=== PATIENT | male | born 1940 | race Caucasian/White ===

== ENCOUNTER → 2023-10-02 13:21 | Outpatient (REF) | payer MEDICARE, BC, SELFPAY | LOC: RCS 13:21 | PROVIDERS: ATTENDING PHYSICIAN Internal Medicine Cardiovascular Disease; FAMILY PHYSICIAN Internal Medicine | DX: I35.0 Nonrheumatic aortic (valve) stenosis (principal) | CPT/HCPCS: 93306 ==

== ENCOUNTER 2024-03-09 17:33 | Outpatient (RCR) | payer MEDICARE, BC, SELFPAY | END 2024-03-09 23:59 | disposition home or self-care (01) | LOC: CRHB 17:33 | PROVIDERS: ATTENDING PHYSICIAN Internal Medicine Cardiovascular Disease | DX: Z95.4 Presence of other heart-valve replacement (principal) | CPT/HCPCS: G0422 ==

== ENCOUNTER 2024-03-18 18:46 | Outpatient (RCR) | payer MEDICARE, BC, SELFPAY | END 2024-03-18 23:59 | disposition home or self-care (01) | LOC: CRHB 18:46 | PROVIDERS: ATTENDING PHYSICIAN Internal Medicine Cardiovascular Disease | DX: I25.10 Atherosclerotic heart disease of native coronary artery without angina pectoris (principal); I48.0 Paroxysmal atrial fibrillation; Z95.4 Presence of other heart-valve replacement | CPT/HCPCS: G0422 ==

== ENCOUNTER 2024-05-10 07:34 | Outpatient (RCR) | payer MEDICARE, BC, SELFPAY | END 2024-05-10 23:59 | disposition home or self-care (01) | LOC: RST 07:34 | PROVIDERS: ATTENDING PHYSICIAN Internal Medicine; FAMILY PHYSICIAN Family Medicine | DX: C02.1 Malignant neoplasm of border of tongue (principal); R13.12 Dysphagia, oropharyngeal phase; R47.1 Dysarthria and anarthria | CPT/HCPCS: 92523; 92610 ==

== ENCOUNTER → 2024-05-13 14:08 | Outpatient (REF) | payer MEDICARE, BC, SELFPAY | LOC: RCS 14:08 | PROVIDERS: ATTENDING PHYSICIAN Internal Medicine Cardiovascular Disease | DX: I35.0 Nonrheumatic aortic (valve) stenosis (principal) | CPT/HCPCS: 93306 ==

== ENCOUNTER 2024-06-07 13:18 | Outpatient (RCR) | payer MEDICARE, BC, SELFPAY | END 2024-06-07 23:59 | disposition home or self-care (01) | LOC: RST 13:18 | PROVIDERS: ATTENDING PHYSICIAN Internal Medicine; FAMILY PHYSICIAN Family Medicine | DX: C02.1 Malignant neoplasm of border of tongue (principal); R13.12 Dysphagia, oropharyngeal phase; R47.1 Dysarthria and anarthria; R47.01 Aphasia | CPT/HCPCS: 92507; 92526 ==

== ENCOUNTER 2024-06-07 15:23 | Outpatient (RCR) | payer MEDICARE, BC, SELFPAY | END 2024-06-07 23:59 | disposition home or self-care (01) | LOC: CRHB 15:23 | PROVIDERS: ATTENDING PHYSICIAN Internal Medicine Cardiovascular Disease; FAMILY PHYSICIAN Internal Medicine | DX: I48.91 Unspecified atrial fibrillation (principal); Z95.4 Presence of other heart-valve replacement | CPT/HCPCS: G0422; G0423 ==

== ENCOUNTER 2024-06-21 14:39 | Outpatient (RCR) | payer MEDICARE, BC, SELFPAY | END 2024-06-21 23:59 | disposition home or self-care (01) | LOC: CRHB 14:39 | PROVIDERS: ATTENDING PHYSICIAN Internal Medicine Cardiovascular Disease; FAMILY PHYSICIAN Internal Medicine | DX: Z95.4 Presence of other heart-valve replacement (principal) | CPT/HCPCS: G0422 ==

== ENCOUNTER 2024-06-24 16:18 | Inpatient (IN) | payer MEDICARE, BC, SELFPAY ==
[2024-06-21] VITALS (7 sets, daily range): BP systolic 157–179; BP diastolic 66–102
--- NOTE | 2024-06-21 15:21 | ED.GENMED ---
History of Present Illness
General
Chief Complaint: Head Injury
Source: patient
Exam Limitations: none
Time Seen by Provider: 06/21/24 15:00
History of Present Illness
History of Present Illness:
84yoM with a history of atrial fibrillation on Eliquis, aortic stenosis s/p TAVR, hypertension, and polymyalgia rheumatica presenting with his for evaluation after a fall yesterday morning. Patient tried to sit down on a bench in his home
yesterday morning about 30 hours ago. He missed the bench and fell on his right side. He states he grazed the right temporal area. No LOC. Patient developed dependent ecchymosis to his R face since then as well as a R subconjunctival hemorrhage. He
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 Patient went to cardiac rehab this afternoon and was sent to the ED for a CT scan of his head. He states he has no headache currently and does not feel he needs to be here. He denies any
dizziness, vomiting, neck pain, back pain.
Past History
Past History
ED Past Medical History: Arrthythmia (Atrial fibrillation and SVT), Cancer (Prostate and tongue) and Other (Temporal arteritis, BPH, kidney stones, polymyositis rheumatica, aortic stenosis, pulmonary hypertension, gout, lumbar vertebral compression
fracture, factor V deficiency, osteoarthritis, gout, BPH, macrocytic anemia)
ED Past Surgical History: Orthopedic (Left knee replacement)
Social History
Tobacco: Former smoker
Alcohol: None
Drug: None
Personal:
Living: with family
Employment: Employed
Family History
Family History: Other (Noncontributory)
Phy Exam
General Physical Exam
General Presentation: well appearing and no apparent distress
General age: appears stated age
General Skin: warm and dry
General Habitus: normal
General Mental: alert
ENT Exam
ENT Exam: other (+Hematoma noted to R temporal area with ecchymosis extending on the R side of the face/periorbital region. No cervical spine tenderness with full ROM.)
Eye Exam
Eye Exam: PERRL, EOMI and other (R subconjuctival hemorrhage)
Pulmonary Exam
Pulmonary Exam: lungs clear, no respiratory distress, no rales and no rhonchi
Neurological Exam
Neurological Exam: alert
[place] Coma Scale
Eye Opening: Spontaneous
Verbal Response: Oriented
Motor Response: Obeys Commands
GCS Total Score: 15
Musculoskeletal Exam
Musculoskeletal Exam: other (Contusion noted to R shoulder with tenderness. ROM intact. )
Skin Exam
Skin Exam: warm/dry
Psychiatric Exam
Psychiatric Exam: normal mood/affect
Course
Orders/Labs/Results
Orders:
Orders
06/21/24 13:54
CT Head W/o Iv Contrast Urgent
Comment: pt is on bld thinner
Reason For Exam: slipped and hit face on bench yesterday
06/21/24 15:21
CT Facial Bones W/o Iv Contras Urgent
Comment:
Reason For Exam: R periorbital ecchymosis
CR Shoulder, Trauma - Right Urgent
Reason For Exam: injury
06/21/24 16:45
PTT Urgent
Prothrombin Time Urgent
06/21/24 16:46
Complete Blood Count/With Diff Urgent
Manual Differential Urgent
06/21/24 17:29
Basic Metabolic Panel Urgent
06/21/24 17:53
Admit/Transfer Patient As Directed
Co-Sign Provider:
Level of Care: Observation services
Assign to:: Telemetry
Physician / Group: cosme
Diagnosis: intraventricular hemorrhage
Reason for Telemetry: Arrhythmia
Date to Stop Telemetry: 06/24/24
Time to Stop Telemetry: 11:00
PRN Pain Medication Management As Directed
May give lesser potent ordered pain med per pt: Yes
preference::
Protocol:: Medication orders for pain may be administered in a
manner that supports deferring to patient preference
when the pt is:
- Requesting an ordered lesser potent pain medication.
Least to most potent pain medications are defined
as: acetaminophen < NSAID < tramadol < opioids
(morphine, oxycodone, hydromorphone).
- Requesting a lesser dose of the same medication IF
ORDERED.
- Requesting a less intrusive route of administration
if both routes are prescribed by the provider (PO <
IV).
06/21/24 17:54
Code Status As Directed
Resuscitation Status: Full Code
06/24/24 11:00
DC Protocol for Telemetry ONCE
Abnormal Lab Results
06/21/24 06/21/24 06/21/24
16:45 16:46 17:29
RBC 2.86 L 10^6/uL
(4.70-6.10)
Hgb 9.1 L g/dL
(13.0-18.0)
Hct 27.5 L %
(39.0-52.0)
MCV 96.2 H fL
(80.0-94.0)
MCH 31.8 H pg
(27.0-31.0)
RDW 14.9 H %
(11.5-14.5)
MPV 10.5 H fL
(7.4-10.4)
Segmented Neutrophils 85 H %
(42-75)
Lymphocytes (Manual) 10 L %
(20-51)
PT 15.3 H Sec
(11.4-14.6)
APTT 36.8 H Sec
(23.4-35.0)
Creatinine 0.6 L mg/dL
(0.7-1.3)
06/21/24 16:46
06/21/24 17:29
Vital Signs
Initial and Last Documented VS:
Initial Vital Signs
Temp Pulse Resp BP Pulse Ox
98.6 F 91 16 179/88 98
06/21/24 13:51 06/21/24 13:51 06/21/24 13:51 06/21/24 13:51 06/21/24 13:51
Last Documented Vital Signs
Temp Pulse Resp BP Pulse Ox
98.6 F 75 27 176/91 97
06/21/24 13:51 06/21/24 18:15 06/21/24 18:15 06/21/24 18:00 06/21/24 18:15
MDM/Problems Addressed
Differential Diagnosis Includes:
84yoM here after a mechanical fall yesterday. +Head strike on Eliquis. Denies complaints. Sent here by cardiac rehab for head CT. He is hypertensive with otherwise stable vitals. There is facial ecchymosis and a R subconjunctival hemorrhage noted.
Cervical spine cleared via NEXUS criteria. Differential diagnosis includes: Closed head injury, concussion, skull fracture, intracranial hemorrhage
Initial ED plan: Check CT head, CT cervical spine, and right shoulder x-rays.
*Critical Care Note
Total Time (30-74mins, 75-104mins- exclusive of procedures): Not Applicable
Update Note
Update Note:
Imaging shows a 5 mm focus along the dependent of the right lateral ventricle consistent with a small volume intraventricular hemorrhage. No other traumatic injuries noted. Case discussed with Dr. Gtz, stonecutter hand neurosurgeon, who recommends
admission at [facility] with plan for repeat head CT in the morning. Patient admitted for further management.
ED Attending Note
-
Portions of this chart may have been created with voice recognition software.� Occasional wrong word or��sound alike� substitutions may have occurred due to the inherent limitations of voice recognition software.
Discharge Plan
Departure
Patient Disposition: Admit
Date of Disposition: 06/21/24
Time of Disposition: 17:22
Presentation/result/management discussed w/ accepting MD/DO: Hospitalist
Discharge Problem:
Intracranial hemorrhage, Ground-level fall
Interventions
Interventions:
*Risk Screen - Suicide Last Done: 06/21/24 13:51
*General Assessment Last Done: 06/21/24 15:50
*Neglect/Abuse Screening Last Done: 06/21/24 13:51
*ED COVID-19 Vaccine History Last Done: 06/21/24 15:50
ED- Neurological Assessment Last Done: 06/21/24 15:57
ED-Skin Assessment Last Done: 06/21/24 15:57
[2024-06-21 17:14] LABS: Hematocrit 27.5 % (39.0-52.0); Hemoglobin 9.1 g/dL (13.0-18.0); Mean Corp Hgb Conc. 33.1 g/dL (33.0-37.0); Mean Corpuscular Hgb 31.8 pg (27.0-31.0); Mean Corpuscular Volume 96.2 fL (80.0-94.0); Mean Platelet Volume 10.5 fL (7.4-10.4); Platelet Count 164 10^3/uL (130-400); Red Blood Cell Count 2.86 10^6/uL (4.70-6.10); Red Cell Dist. Width 14.9 % (11.5-14.5); White Blood Cell Count 7.4 10^3/uL (4.8-10.8)
[2024-06-21 17:18] LABS: INR 1.18; PT 15.3 Sec (11.4-14.6)
[2024-06-21 17:19] LABS: APTT 36.8 Sec (23.4-35.0)
--- NOTE | 2024-06-21 17:56 | HPS.HSE ---
Family Physician
-
Family Physician: Himanshu Motta
Chief Complaint
-
fall
History of Present Illness
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
arteritis, prostate cancer status post radiation, squamous cell cancer of the tongue, macrocytic anemia, BPH, gout, factor V Leyden,, osteoarthritis, MRSA infection of left knee joint, MRSA bacteremia, lumbar vertebral compression fracture,
presenting after a fall yesterday morning. Patient tried to sit down to bed yesterday morning 30 hours ago. He missed the bench and fell onto his right side. He grazed the right temporal area. No loss of consciousness. Developed ecchymosis to
his right face as well as right subconjunctival hemorrhage. His vision is fine. He went to cardiac rehab this afternoon and was sent to the emergency room for CT scan of the head. He denies headache. Denies dizziness or vomiting or neck pain or
back pain.
He drinks a glass of wine every night. Denies smoking.
Medical History
Past Medical History
Past Medical History: Reports Other ( paroxysmal atrial fibrillation on Eliquis, SVT status post ablation, aortic stenosis status post TAVR, hypertension, pulmonary hypertension, polymyalgia rheumatica, giant arteritis, prostate cancer status post
radiation, squamous cell cancer of the tongue, macrocytic anemia, BPH, gout, factor V [place])
Past Surgical History: Reports Other ((Left knee replacement))
Social History
Tobacco: Non-smoker
Alcohol: None
Drug: None
Family History
Family History: Not pertinent
Allergies / Home Medications
Allergies reflects when Allergies were last updated in [employer].
Home Medications with original date entered in [employer]
Allergy/Medication List:
Allergies
Allergy/AdvReac Type Severity Reaction Status Date / Time
pollen extracts Allergy Nasal Verified 06/21/24 13:53
congestion;
hayfever
Home Medications
ascorbic acid (vitamin C) 500 mg tablet (Vitamin C) 500 mg PO DAILY Supplement 10/09/19
metoprolol succinate 25 mg tablet,extended release 24 hr 25 mg PO QPM Blood pressure 10/09/19
multivitamin 1 ea PO DAILY Supplement 10/09/19
fluticasone propionate 50 mcg/actuation nasal spray,suspension 1 spray intranasal DAILY PRN nasal congestion 12/11/19
Lupron: 1 dose INJ .[id number] Hormonal agent 09/05/21
calcium 315 mg (as citrate)-vitamin D3 6.25 mcg (250 unit) tablet 1 ea PO DAILY Supplement 09/05/21
oxycodone 5 mg tablet 5 mg PO Q6HPRN PRN moderate-severe pain #30 tabs 09/07/21
pantoprazole 40 mg tablet,delayed release 40 mg PO HS #15 tabs 09/07/21
tamsulosin 0.4 mg capsule 0.4 mg PO HS Urinary issue 09/07/21
Krill Oil 1 tab PO DAILY ##0 10/01/21
docusate sodium 100 mg capsule 100 mg PO BID #30 caps 10/01/21
glucosamine sulfate dipotassium Cl 500 mg-chondroitin 400 mg capsule (Glucosamine Sulfate 2 KCL-Chondroitin) 1 cap PO DAILY ##0 10/01/21
losartan 50 mg tablet 50 mg PO HS ##0 10/01/21
magnesium hydroxide 400 mg/5 mL oral suspension 30 ml PO HSPRN PRN constipation ##7 10/01/21
prednisone 2.5 mg tablet 2.5 mg PO DAILY ##0 10/01/21
sennosides 8.6 mg capsule (senna) 17.2 mg (2 x 8.6 mg) PO BID #30 caps 10/01/21
acetaminophen 325 mg tablet 650 mg PO Q4HPRN PRN mild pain 10/12/21
allopurinol 300 mg tablet 300 mg PO DAILY Gout 10/12/21
tizanidine 2 mg tablet 2 mg PO HSPRN PRN muscle pain/sleep 10/12/21
apixaban 2.5 mg tablet (Eliquis) 2.5 mg PO BID 10/14/21
Review of Systems
-
History Source: Patient
A 12 point ROS was completed and negative except as noted: Yes
Constitutional: Reports No Symptoms
EENT: Reports No Symptoms
Respiratory: Reports No Symptoms
Cardiac: Reports No Symptoms
Abdomen/GI: Reports No Symptoms
: Reports No Symptoms
Musculoskeletal: Reports No Symptoms
Skin: Reports No Symptoms
Neurological: Reports No Symptoms
Endocrine: Reports No Symptoms
Hematologic/Lymphatic: Reports No Symptoms
Psych: Reports No Symptoms
Physical Exam
Vital Signs
Vital Signs
Temp Pulse Resp BP Pulse Ox
98.6 F 91 16 179/88 98
06/21/24 13:51 06/21/24 13:51 06/21/24 13:51 06/21/24 13:51 06/21/24 13:51
Physical Exam
General: Well Developed, Well Nourished and No Apparent Distress
HEENT: NormoCephalic, Moist mucous membranes, Atraumatic and Other (erythema right eye, periorbital echymosis )
Respiratory: Clear
Cardiac: S1/S2 and Regular Rhythm; No Murmur or Rub
GI: Soft, Non Tender, Non Distended and Normal Bowel Sounds; No Organomegaly
Rectal: Deferred by Provider
Musculoskeletal: No Clubbing, No Cyanosis and No Edema
Skin: No Rash
Neuro: Nonfocal/grossly intact
Laboratory Results
-
06/21/24 16:46
Laboratory Results
PT 15.3 Sec (11.4-14.6) H 06/21/24 16:45
INR 1.18 06/21/24 16:45
APTT 36.8 Sec (23.4-35.0) H 06/21/24 16:45
Total Bilirubin Cancelled 06/21/24 16:45
AST Cancelled 06/21/24 16:45
ALT Cancelled 06/21/24 16:45
Alkaline Phosphatase Cancelled 06/21/24 16:45
Data Reviewed
-
Lab Data: Labs Reviewed by me
Old Records: Reviewed
Impression/Plan
-
IMPRESSION:
PLAN:
# Small intraventricular hemorrhage along the right lateral ventricle
-As per CT head
-Hold Eliquis
-Maintain systolic blood pressure under 140 systolic
-Neurosurgery consulted and recommended stay for overnight observation and repeat CT head in the morning and discharge and resume Eliquis if stable tomorrow
# Ecchymosis of right face/periorbital with conjunctival hemorrhage from fall
-No symptoms
# Right shoulder ecchymosis from fall
-Shoulder x-ray negative
Paroxysmal atrial fibrillation
-Continue metoprolol
Aortic stenosis status post TAVR in January
-Attending cardiac rehab
History of SVT status post ablation
Essential hypertension
-Continue losartan
Pulmonary hypertension
Polymyalgia rheumatica
Macrocytic anemia
Giant arteritis
BPH
-Continue tamsulosin
Gout
-Continue allopurinol
Factor V Leyden mutation
Prostate cancer status post radiation
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
History of MRSA infection of left knee joint/bacteremia
Full code
DVT prophylaxis SCDs
Regular diet
[2024-06-21 18:00] LABS: Blood Urea Nitrogen 18 mg/dl (9-20); Calcium 9.5 mg/dl (8.4-10.2); Carbon Dioxide 22 mmol/L (22-30); Chloride 104 mmol/L (98-107); Glucose 88 mg/dl (70-99); Sodium 138 mmol/L (135-145); eGFR > 60.00
[2024-06-21 18:31] LABS: Absolute Neutrophils -Man Diff 6.4 10^3/uL (1.4-6.5); Band Neutrophils 2 % (0-3); Lymphocytes 10 % (20-51); Monocytes 3 % (2-9); Segmented Neutrophils 85 % (42-75)
[2024-06-21 18:33] LABS: Anisocytosis 1+; Hypochromasia 1+; Normal RBC Morphology No; Platelets Checked Yes
[2024-06-21 18:34] LABS: Total Cells Counted 100
[2024-06-21] MEDS: TOPROL XL 12.5 MG PO (21:22)
[2024-06-21] MEDS: FLOMAX 0.4 MG PO (21:22)
[2024-06-21] MEDS: COLACE 100 MG PO (21:22)
[2024-06-22] VITALS (21 sets, daily range): BP systolic 128–181; BP diastolic 55–81; PULSE 77–86; BMI 22.3
[2024-06-22 06:02] LABS: % Basophils 0.8 % (0-2); % Eosinophils 4.4 % (0-6); % Immature Granulocytes 0.2 % (0-0.5); % Lymphocytes 17.7 % (20.5-51.1); % Monocytes 13.6 % (1.7-9.3); % Neutrophils 63.3 % (42.2-75.2); Absolute Basophils 0.1 10^3/uL (0-0.2); Absolute Eosinophils 0.3 10^3/uL (0-0.7); Absolute Lymphocytes 1.1 10^3/uL (1.2-3.4); Absolute Monocytes 0.9 10^3/uL (0.1-0.6); Absolute Neutrophils 4.1 10^3/uL (1.4-6.5); Hematocrit 25.2 % (39.0-52.0); Hemoglobin 8.4 g/dL (13.0-18.0); Mean Corp Hgb Conc. 33.3 g/dL (33.0-37.0); Mean Corpuscular Hgb 31.9 pg (27.0-31.0); Mean Corpuscular Volume 95.8 fL (80.0-94.0); Mean Platelet Volume 10.4 fL (7.4-10.4); Nucleated Red Blood Cells % 0 % (-); Platelet Count 142 10^3/uL (130-400); Red Blood Cell Count 2.63 10^6/uL (4.70-6.10); Red Cell Dist. Width 14.8 % (11.5-14.5); White Blood Cell Count 6.4 10^3/uL (4.8-10.8)
[2024-06-22 06:27] LABS: ALT (SGPT) 121 U/L (0-50); AST (SGOT) 91 U/L (17-59); Albumin 3.9 g/dl (3.5-5.0); Alkaline Phosphatase 259 U/L (38-126); Blood Urea Nitrogen 15 mg/dl (9-20); Calcium 9.1 mg/dl (8.4-10.2); Carbon Dioxide 24 mmol/L (22-30); Chloride 102 mmol/L (98-107); Estimated Creatinine Clearance 87 ml/min; Glucose 89 mg/dl (70-99); Potassium 4.3 mmol/L (3.5-5.1); Sodium 136 mmol/L (135-145); Total Bilirubin 0.7 mg/dl (0.2-1.3); Total Protein 6.4 g/dl (6.3-8.2); eGFR > 60.00
[2024-06-22] MEDS: THERAGRAN 1 TABLET PO (11:04)
--- NOTE | 2024-06-22 12:15 | W.PN.HOSP.TC ---
Addendum entered and electronically signed by Tyrese Hdz MD 06/22/24 15:25:
US : Cholelithiasis with thickening of the gallbladder wall 5 mm suggesting cholecystitis and dilatation of the common duct to 10 mm suggesting possible choledocholithiasis
consulting Gen Surg and GI;
hold dc
Original Note:
Today's Communication/Plan
-
orthostatics prior to dc
holter monitor outpt
neurosurg eval, can restart eliquis
ruq sono, should not preclude dc - can otherwise f/u outpt with [facility]
Assessment / Plan
Assessment / Plan
Physical Exam
General: Well Developed, Well Nourished and No Apparent Distress
HEENT: NormoCephalic, Moist mucous membranes, Atraumatic and Other (erythema right eye, periorbital echymosis )
Respiratory: Clear
Cardiac: S1/S2 and Regular Rhythm; No Murmur or Rub
GI: Soft, Non Tender, Non Distended and Normal Bowel Sounds; No Organomegaly
Rectal: Deferred by Provider
Musculoskeletal: No Clubbing, No Cyanosis and No Edema
Skin: No Rash
Neuro: Nonfocal/grossly intact
# Small intraventricular hemorrhage along the right lateral ventricle
-repeat ct head stable
-await nsg recs, no acute interventions
-can resume Eliquis today as ct stable
# Ecchymosis of right face/periorbital with conjunctival hemorrhage from fall
-No symptoms
-pt/ot
-holter outpt
#Transaminitis
-no abd pain tenderness
-f/u complete us - can be done outpt if not done inpt
# Right shoulder ecchymosis from fall
-Shoulder x-ray negative
Paroxysmal atrial fibrillation
-Continue metoprolol
Aortic stenosis status post TAVR in January
-Attending cardiac rehab
-f/u cards outpt
History of SVT status post ablation
-f/u cards for possible holter
Essential hypertension
-Continue losartan
Pulmonary hypertension
Polymyalgia rheumatica
Macrocytic anemia
Giant arteritis
BPH
-Continue tamsulosin
Gout
-Continue allopurinol
Factor V Leyden mutation
Prostate cancer status post radiation
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
History of MRSA infection of left knee joint/bacteremia
Full code
DVT prophylaxis SCDs
Regular diet
More than 30 minutes spent in discharge including
Final examination of the patient
Summarizing hospital stay
Instructions for continuing care to all relevant caregivers
Preparation of discharge records, prescriptions, and referral forms
Total time spent (37 in minutes):
Anticipated Discharge: Today
Subjective/Interval History
-
Date of Service: June 22, 2024
No acute events
Objective Data
-
Labs:
Laboratory Results
06/22/24
05:54
WBC 6.4
Hgb 8.4 L
Hct 25.2 L
Plt Count 142
Sodium 136
Potassium 4.3
Chloride 102
Carbon Dioxide 24
BUN 15
Creatinine 0.6 L
Glucose 89
Calcium 9.1
Total Bilirubin 0.7
AST 91 H
ALT 121 H
Alkaline Phosphatase 259 H
Vital Signs:
Vital Signs
Temp Pulse Resp BP Pulse Ox
98.6 F 69 20 170/68 98
06/21/24 13:51 06/22/24 06:00 06/22/24 06:00 06/22/24 05:45 06/22/24 06:00
Review of Systems
-
History Source: Patient
All other systems: Not reviewed unless documented
Data Reviewed
-
Diagnostic Radiology: Report Reviewed by me
CT Scan: Report Reviewed by me
Labs: Labs Reviewed by me
--- NOTE | 2024-06-22 12:35 | W.DS.TRANS ---
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
-
Discharge Instructions:
Discharge Diagnosis/Procedures Small intraventricular hemorrhage along the
right lateral ventricle
Ecchymosis of right face/periorbital with
conjunctival hemorrhage from fall
Diet Low Fat,Low Cholesterol
Activity As tolerated
Blood Work [facility] within 7 days with pcp
Instructions:
Stand-Alone Forms:
Changes to Home Medications: No
Discharge Medications:
DC Medications w/original date entered in [employer]
metoprolol succinate 25 mg tablet,extended release 24 hr 12.5 mg PO HS Blood pressure 10/09/19
tamsulosin 0.4 mg capsule 0.4 mg PO HS Urinary issue 09/07/21
apixaban 2.5 mg tablet (Eliquis) 2.5 mg PO HS 06/21/24
docusate sodium 100 mg capsule 100 mg PO HS 06/21/24
therapeutic multivitamin 1 tab PO DAILY 06/21/24
Home Medication Changes
na
Pending Results: No
--- NOTE | 2024-06-22 14:28 | CM ---
CM met with pt and spouse
They reside in a [address] with 1 [address]
Full flight to 2nd floor
Pt is independent without ADs at baseline, drives+
has a WW, SPC and tub shower for use as needed
Pt is currently attending outpt cardiac rehab
No financial insecurities
PCP- Luke Motta
Rx- [facility]
Pt is OBS- [facility] verbally completed
Copy placed on ED chart
VN recs by therapy
Pt declined as he wants to continue cardiac
Spouse plans to call cardiac rehab as she is concerned his therapy is closing soon
She will alert CM if VN needs to be set up- [facility] is provider choice if needed
Discharge Disposition- home with continuation of outpt cardiac rehab, spouse will transport
--- NOTE | 2024-06-22 15:42 | CON.GI ---
Addendum entered and electronically signed by Vanessa Marin MD 06/22/24 17:22:
I saw and examined the patient.
The FEED RESEARCH TECHNICIAN or PA's note was reviewed and I agree with the note.
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
Eliquis, history of macrocytic anemia since age 4 with baseline hemoglobin around 10 mg/dL, presenting after a fall, loss of consciousness, as per patient/, tripped and fell. In the ER, CT scan of the head showing small volume subacute
intraventricular hemorrhage in the dependent portion of the occipital horn of the right lateral ventricle, neurosurgery evaluation noted-observation. Incidentally, noted to have elevated LFTs with total bilirubin of 0.7, AST of 91, ALT of 121
alkaline phosphatase of 259. Last noted LFTs in 2021 within normal limits. As per patient, he does have history of gallstones. Abdominal ultrasound today showing thickening of the gallbladder wall suggesting possible cholecystitis and common duct
dilated to 10 mm, rule out choledocholithiasis. No abdominal pain, nausea or vomiting. Since after her tongue surgery, he does have dysphagia and has to chew food really well. No constipation, diarrhea, blood in the stool or black stool. He did
lose 40 pounds in the last few years. Never had upper endoscopy or colonoscopy.
-Elevated transaminases and alkaline phosphatase with normal bilirubin, abdominal ultrasound showing CBD at 10 mm and possible gallbladder thickening.
No abdominal pain, previous LFTs within normal limits in 2021. No LFTs to compare to recently. Clinically is not presenting like acute cholecystitis.
Given above findings, will do MRI/MRCP to further evaluate the gallbladder wall thickening and common bile duct dilation.
Will follow-up on the above testing.
-Chronic macrocytic anemia without any evidence of overt GI bleeding
Will follow
Original Note:
Consultation
-
Date/Time Consultation Requested: 06/22/24 1520
Date/Time Consultation Performed: 06/22/24 1540
Requesting Provider: Tyrese Hdz MD
Performing Provider: ELEANOR Bains, Vanessa Marin MD
Reason for Consultation: elevated LFT's, abnormal US
Medical History
Chief Complaint / HPI
Chief Complaint: s/p fall
History of Present Illness:
Pt is a 84yo presents hx with prior TAVR 01/2024 at [facility], squamous cell of tongue in past and recent noted growth with resection and neck [id number] at [place], prostate CA s/p radiation, PAF on Eliquis, SVT, Temporal arteritis,
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
10 now presents with fall with noted facial, eye and shoulder bruising. He went to cardiac rehab and was sent to ER for evaluation. In ER noted with small volume subacute intraventricular hemorrhage in dependent portion of Occipital horn of right
lateral ventricle with neurosurgical evaluation. He was also noted after admission noted with bili 0.7, AST 91, ALT 121, alk phos 259 with normal LFT's in 2021. US was completed with cholelithiasis with thickening of the gallbladder wall 5 mm
suggesting cholecystitis and dilatation of the common duct to 10 mm suggesting possible choledocholithiasis.
At this time patient admits to wt loss of 40 lbs with recent TAVR and tongue surgery. He also admits to recent epistaxis with hx NGT with tongue surgery. He dose have some chronic dysphagia with chopped diet. He had minimal GERD. He
otherwise denies nausea, vomiting, abdominal pain, diarrhea, constipation, blood or black in stools. No hx EGD or colonoscopy in past. No hx liver problems, or hepatitis in past. Only med change was had alternative to Tamsulosin for several weeks
with tongue surgery but resumed Tamsulosin around 3 weeks ago.
Past Medical History
Past Medical History: Arrhythmias (afib on Eliquis, SVT, prior first degree block ), Cancer (prostate and squamous cell CA of Tongue), Valvular Disease (Aortic stenosis, MR, BPH, gout ) and Other (Temporal arteritis, BPH, kidney stones, polymyositis
rheumatica, aortic stenosis, pulmonary hypertension, gout, lumbar vertebral compression fracture, factor V lyden carrier, osteoarthritis, gout, BPH, macrocytic anemia, MRSA knee, MRSA bacteremia, )
Past Surgical History: Appendectomy, Cardiac (TAVR, prior ablation ), Orthopedic (knee surgery), Tonsilectomy (adenoidectomy) and Other (squamous cell of tongue and neck [id number], hernia repair, b/l Ptosis repair )
Social History
Tobacco: Former Smoker (many years ago)
Alcohol: Former (prior wine use in past but no ETOH for last 9 months )
Drug: None
Personal:
Living: With Family
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
Family History
Family History: Other (mother with antony, aunt with colon adenoma, grandfather with oral CA)
Allergies / Home Medications
Allergy/AdvReac Type Severity Reaction Status Date / Time
pollen extracts Allergy Nasal Verified 06/21/24 13:53
congestion;
hayfever
�Medication �Instructions �Recorded
metoprolol succinate 25 mg 12.5 mg PO HS Blood pressure 10/09/19
tablet,extended release 24 hr
tamsulosin 0.4 mg capsule 0.4 mg PO HS Urinary issue 09/07/21
apixaban 2.5 mg tablet (Eliquis) 2.5 mg PO HS 06/21/24
docusate sodium 100 mg capsule 100 mg PO HS 06/21/24
therapeutic multivitamin 1 tab PO DAILY 06/21/24
Review of Systems
-
History Source: Patient and Family
Constitutional: Reports Weight Loss ( 40 lbs with recent surgeries )
EENT: Reports Other (recent epistaxis )
Respiratory: Reports No Symptoms
Cardiac: Reports No Symptoms
Abdomen/GI: Reports No Symptoms
: Reports Other (some frequent with flomax use)
Musculoskeletal: Reports Other (b/l shoulder pain left chronic and right side with recent fall )
Skin: Reports Other (bruising facial, conjunctiva, and right shoulder)
Neurological: Reports No Symptoms
Endocrine: Reports No Symptoms
Hematologic/Lymphatic: Reports Bruising
Vital Signs
Temp Pulse Resp BP Pulse Ox
98.6 F 75 23 141/68 93
06/21/24 13:51 06/22/24 15:30 06/22/24 15:30 06/22/24 15:15 06/22/24 12:15
Physical Exam
Exam
General: Well Developed, Well Nourished and No Apparent Distress
HEENT: Other (right facial and conjunctiva bruising )
Respiratory: Clear
Cardiac: Regular Rhythm
GI: Soft, Non Tender and Non Distended
Musculoskeletal: No Clubbing, No Cyanosis and Other (right shoulder bruising )
Skin: Warm and Dry
Neuro: Awake, Alert and AO x 3
Psych: Calm
Results
WBC 6.4 10^3/uL (4.8-10.8) 06/22/24 05:54
Hgb 8.4 g/dL (13.0-18.0) L 06/22/24 05:54
Hct 25.2 % (39.0-52.0) L 06/22/24 05:54
MCV 95.8 fL (80.0-94.0) H 06/22/24 05:54
Plt Count 142 10^3/uL (130-400) 06/22/24 05:54
Absolute Neuts (auto) 4.1 10^3/uL (1.4-6.5) 06/22/24 05:54
PT 15.3 Sec (11.4-14.6) H 06/21/24 16:45
INR 1.18 06/21/24 16:45
APTT 36.8 Sec (23.4-35.0) H 06/21/24 16:45
Sodium 136 mmol/L (135-145) 06/22/24 05:54
Potassium 4.3 mmol/L (3.5-5.1) 06/22/24 05:54
Chloride 102 mmol/L (98-107) 06/22/24 05:54
Carbon Dioxide 24 mmol/L (22-30) 06/22/24 05:54
BUN 15 mg/dl (9-20) 06/22/24 05:54
Creatinine 0.6 mg/dL (0.7-1.3) L 06/22/24 05:54
Calcium 9.1 mg/dl (8.4-10.2) 06/22/24 05:54
Total Bilirubin 0.7 mg/dl (0.2-1.3) 06/22/24 05:54
AST 91 U/L (17-59) H 06/22/24 05:54
ALT 121 U/L (0-50) H 06/22/24 05:54
Alkaline Phosphatase 259 U/L (38-126) H 06/22/24 05:54
Diagnostic Image Results:
06/22/24 US Abdomen Complete/Upper
There is cholelithiasis with thickening of the gallbladder wall 5 mm suggesting cholecystitis and dilatation of the common duct to 10 mm suggesting possible choledocholithiasis
Prior GI Procedures:
EGD: none
Colonoscopy:none
Assessment / Plan
-
Pt is a 84yo presents hx with prior TAVR 01/2024 at [facility], squamous cell of tongue in past and recent noted growth with resection and neck [id number] at [place], prostate CA s/p radiation, PAF on Eliquis, SVT, Temporal arteritis,
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
10 now presents with fall with noted facial, eye and shoulder bruising. He went to cardiac rehab and was sent to ER for evaluation. In ER noted with small volume subacute intraventricular hemorrhage in dependent portion of Occipital horn of right
lateral ventricle with neurosurgical evaluation. He was also noted after admission noted with bili 0.7, AST 91, ALT 121, alk phos 259 with normal LFT's in 2021. US was completed with cholelithiasis with thickening of the gallbladder wall 5 mm
suggesting cholecystitis and dilatation of the common duct to 10 mm suggesting possible choledocholithiasis.
-s/p fall with noted small volume subacute intraventricular hemorrhage in dependent portion of Occipital horn of right lateral ventricle, facial, conjunctiva, shoulder bruising
-mild LFT elevation
-US with cholelithiasis, with thickening of GB wall and dilation of CBD
-recent wt loss 40 lbs
-s/p TAVR 01/2024 [facility]
-hx prior squamous cell tongue then recent growth with removal and reconstruction with neck dissection 03/2024
-dysphagia s/p tongue reconstruction
-chronic macrocytic anemia baseline hbg around 10
-PAF on Eliquis
other med problems:
-prostate CA with prior Lupron and radiation
-SVT
-temp arteritis
-BPH
-renal stones
-polymyositis rheumatica
-pulm HTN
-gout
-MRSA knee and bacteremia
-hx comp fracture
-factor V Leyden carrier
PLAN:
etiology of elevated LFT's unclear biliary vs other- last baseline noted normal in 2021, no hx liver problems in past or hepatitis
US reviewed
plan for MRI with and without contrast with MRCP for further evaluation
trend labs
Pt on Eliquis prior to admission
for surgical eval
s/p neurosurgical eval -- reviewed with neurosurgery Dr. Gtz- ok for GI intervention if needed but avoid HTN
family updated at bedside
-
-
Thank you for consultation and allowing me to participate in the patient's care. Please call the stallion keeper GI physician during the after hours with any questions or concerns.
--- NOTE | 2024-06-22 15:58 | CON.NS ---
Consultation
-
Date/Time Consultation Performed: 06/22/2024; 16:00
Performing Provider: Tresa
Chief Complaint
History of Present Illness
This is a neurosurgical consultation on a 84-year-old gentleman who has a active medical history of paroxysmal atrial fibrillation on Eliquis, aortic stenosis, status post TAVR, who presented after a fall the day prior. It is reported that the
patient tried to sit down on his bed, missed the bench, and fell onto his right side. He had an abrasion over the right temporal area. He denies any loss consciousness. When he presented to cardiac rehab yesterday afternoon, he was directed to
the emergency room for additional evaluation. Patient had noncontrast CT scan of the head, that demonstrated small area of layering intraventricular hemorrhage within the right occipital horn. Given this, he was admitted for close monitoring.
Patient seen examined. Denies any headache. Denies any nausea or vomiting. Denies any numbness, tingling, weakness in upper or lower extremities.
Review of Systems
-
10 point review of systems including constitutional, ENT, cardiovascular, respiratory, GI, , neurologic, hematologic, endocrinologic, musculoskeletal, was performed, was negative except for stated in HPI.
Medication and Allergies
Home Medications
Home Medications
�Medication �Instructions �Recorded
metoprolol succinate 25 mg 12.5 mg PO HS Blood pressure 10/09/19
tablet,extended release 24 hr
tamsulosin 0.4 mg capsule 0.4 mg PO HS Urinary issue 09/07/21
apixaban 2.5 mg tablet (Eliquis) 2.5 mg PO HS 06/21/24
docusate sodium 100 mg capsule 100 mg PO HS 06/21/24
therapeutic multivitamin 1 tab PO DAILY 06/21/24
Allergies
Allergies
Allergy/AdvReac Type Severity Reaction Status Date / Time
pollen extracts Allergy Nasal Verified 06/21/24 13:53
congestion;
hayfever
Physical Exam
-
Exam:
Awake, alert, no apparent distress.
Significant right periorbital, facial ecchymosis and edema.
Conjunctival injection of the right eye
Face is otherwise symmetric, tongue is midline.
Mild dysarthria, secondary to history of having squamous cell cancer of the lung
Motor: 5/5 strength bilaterally in upper extremities lower extremities, no evidence of pronator drift.
Speech is fluent, comprehension is intact, repetition is normal
Noncontrast CT scan of the head performed on 06/22/2024 was reviewed. This was compared with previous CT of the head performed on 06/21/2024 at 3:30 PM. Images were personally viewed interpreted by me. There is stable appearance of intraventricular
hemorrhage, layering within the right parietal occipital horn. No evidence of subdural hematoma, intraparenchymal hemorrhages seen.
Problems
-
Problem Status Onset Code
Ground-level fall W18.30XA
Intracranial hemorrhage I62.9
Assessment / Plan
-
This is an 84-year-old gentleman, who presents over 24 hours after sustaining mechanical fall on [employer] He did hit his head. He had a noncontrast head CT that, that demonstrated right occipital intraventricular hemorrhage, likely traumatic in
nature. Repeat imaging is stable.
He also has elevated LFTs, and ultrasound of the abdomen demonstrates possible cholecystitis.
Given stable neurological examination, okay to continue with [employer] from neurosurgical standpoint.
Obtain repeat CT scan of the head in approximately 3 to 4 weeks. Follow-up in the office thereafter.
If patient requires additional procedures in the hospital, okay to do so. Maintain normal systolic blood pressures, avoid hypertension, and systolic blood pressures greater than 140-150
[2024-06-22] MEDS: UNASYN IV ×2 (18:22→21:58)
[2024-06-22] MEDS: TOPROL XL 12.5 MG PO (21:58)
[2024-06-22] MEDS: COLACE 100 MG PO (21:59)
[2024-06-22] MEDS: FLOMAX 0.4 MG PO (21:59)
[2024-06-23] VITALS (12 sets, daily range): BP systolic 12–163; BP diastolic 65–82
[2024-06-23] MEDS: UNASYN IV ×4 (03:11→21:02)
--- NOTE | 2024-06-23 08:36 | W.PN.GI.CBS2 ---
Addendum entered and electronically signed by Vanessa Marin MD 06/23/24 12:30:
I saw and examined the patient.
The FACEPIECE LINE SUPERVISOR or PA's note was reviewed and I agree with the note.
Comment: Patient without any abdominal pain, fevers or chills, LFTs continue to be slightly elevated.
Reviewed MRI/MRCP with patient and . Choledocholithiasis noted on MRI, for ERCP today with Dr. Schwab.
Also discussed regarding need for laparoscopic cholecystectomy at some point after ERCP.
Patient aware of the pancreatic cystic lesions noted on MRI, follow-up MRI in 4 to 6 months as per radiology recommendation.
Original Note:
Today's Communication / Plan
-
MRI/ MRCP reviewed with patient and Dr. Marin with concern for CBD stone, possible cholecystitis, panc cyst, bladder foci
discussed need for ERCP
reviewed risk/benefits of procedure
with hx tongue surgery pt deciding if he would want to do at vs [place] where recent tongue surgery completed
cont NPO til decides on ERCP
repeat LFT's pending
Last Eliquis Friday
for surgical eval for GB inflammation
s/p neurosurgical eval -- reviewed with neurosurgery Dr. Angulo - ok for GI intervention if needed but avoid HTN
sent TT to Dr. Hdz to review for BP management
updated via phone
Assessment / Plan
-
Pt is a 84yo presents hx with prior TAVR 01/2024 at [facility], squamous cell of tongue in past and recent noted growth with resection and neck [id number]/2024 at [place], prostate CA s/p radiation, PAF on Eliquis, SVT, Temporal arteritis,
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
10 now presents with fall with noted facial, eye and shoulder bruising. He went to cardiac rehab and was sent to ER for evaluation. In ER noted with small volume subacute intraventricular hemorrhage in dependent portion of Occipital horn of right
lateral ventricle with neurosurgical evaluation. He was also noted after admission noted with bili 0.7, AST 91, ALT 121, alk phos 259 with normal LFT's in 2021. US was completed with cholelithiasis with thickening of the gallbladder wall 5 mm
suggesting cholecystitis and dilatation of the common duct to 10 mm suggesting possible choledocholithiasis.
06/22/24 MR Abdomen W/o & W Contrast
Gallbladder contains multiple stones. Crescentic fluid signal intensity along the anterior margin of the gallbladder. It is unclear if this represents fluid in the gallbladder lumen interposed between the gallbladder wall and a stone, or if this
represents pericholecystic fluid. Ultrasound performed the same day revealed gallbladder wall thickening. The combination of gallstones, gallbladder wall thickening shown by ultrasound, and possible pericholecystic fluid shown by this exam are
worrisome for acute cholecystitis
There is evidence for a 7 x 3 mm stone in the mid to distal common bile duct. This causes mild upstream distention of the common bile duct
Nonenhancing cystic lesion containing thin septation in the uncinate process of pancreas. 8 mm simple cystic lesion in the pancreatic neck. 4 mm simple cystic lesion in pancreatic body. Possible etiologies include cysts, pseudocysts, intraductal
papillary mucinous neoplasia. Follow-up MRI in 4-6 months recommended for reevaluation.
1.2 cm low signal focus in the right superior aspect of the urinary bladder. Differential diagnosis includes bladder calculus, sloughed papilla, intraluminal blood clot. If clinically warranted, urinary bladder ultrasound could provide further
evaluation
-s/p fall with noted small volume subacute intraventricular hemorrhage in dependent portion of Occipital horn of right lateral ventricle, facial, conjunctiva, shoulder bruising
-mild LFT elevation
-imaging with MRI with concern for choledocholithiasis
-cholelithiasis/ possible cholecystitis
-pancreatic cysts
-bladder focus on MRI- stone, sloughed papulla, vs intraluminal blood clot
-recent wt loss 40 lbs over last year
-s/p TAVR 01/2024 [facility]
-hx prior squamous cell tongue then recent growth with removal and reconstruction with neck dissection 03/2024
-dysphagia s/p tongue reconstruction
-chronic macrocytic anemia baseline hbg around 10
-PAF on Eliquis
other med problems:
-prostate CA with prior Lupron and radiation
-SVT
-temp arteritis
-BPH
-renal stones
-polymyositis rheumatica
-pulm HTN
-gout
-MRSA knee and bacteremia
-hx comp fracture
-factor V Leyden carrier
PLAN:
MRI/ MRCP reviewed with patient and Dr. Marin with concern for CBD stone, possible cholecystitis, panc cyst, bladder foci
discussed need for ERCP
reviewed risk/benefits of procedure
with hx tongue surgery pt deciding if he would want to do at vs [place] where recent tongue surgery completed
cont NPO til decides on ERCP
repeat LFT's pending
Last qufriday
for surgical eval for GB inflammation
s/p neurosurgical eval -- reviewed with neurosurgery Dr. Angulo - ok for GI intervention if needed but avoid HTN
sent TT to Dr. Hdz to review for BP management
updated via phone
Subjective
Subjective
Date of Service: June 23, 2024
currently NPO, no stools recorded no abdominal pain does now report some indigestion prior to admission
Objective
Data Reviewed
Laboratory Data:
Laboratory Results
06/22/24 05:54
06/22/24 05:54
Laboratory Results
PT 15.3 Sec (11.4-14.6) H 06/21/24 16:45
INR 1.18 06/21/24 16:45
APTT 36.8 Sec (23.4-35.0) H 06/21/24 16:45
Total Bilirubin 0.7 mg/dl (0.2-1.3) 06/22/24 05:54
AST 91 U/L (17-59) H 06/22/24 05:54
ALT 121 U/L (0-50) H 06/22/24 05:54
Alkaline Phosphatase 259 U/L (38-126) H 06/22/24 05:54
Vital Signs and I&O:
Vital Signs
Temp Pulse Resp BP Pulse Ox
97.6 F 72 16 155/68 98
06/23/24 03:15 06/23/24 03:15 06/23/24 03:15 06/23/24 03:15 06/23/24 03:15
I&O
06/22/24 06/23/24 06/24/24
06:59 06:59 06:59
Intake Total 480 / 480
Output Total 725 / 725
Balance -245 / -245
Physical Exam
Physical Exam
HEENT: Anicteric and Moist mucous membranes
Cardiology: Normal Sinus Rhythm
Pulmonary: Clear
GI: Soft, Non Distended and Non Tender
Neuro: Non Focal
[2024-06-23] MEDS: THERAGRAN PO (08:48)
[2024-06-23 09:46] LABS: Hematocrit 26.3 % (39.0-52.0); Hemoglobin 8.8 g/dL (13.0-18.0); Mean Corp Hgb Conc. 33.5 g/dL (33.0-37.0); Mean Corpuscular Hgb 31.9 pg (27.0-31.0); Mean Corpuscular Volume 95.3 fL (80.0-94.0); Mean Platelet Volume 9.9 fL (7.4-10.4); Platelet Count 164 10^3/uL (130-400); Red Blood Cell Count 2.76 10^6/uL (4.70-6.10)
--- NOTE | 2024-06-23 10:02 | CM ---
Met with patient at bedside to discuss discharge plan; offered home health/VN/PT
Patient reported that he prefers to go to outpatient cardiac rehab when discharged; and his will transport home when stable
IMM benefit explained;form signed @ 1000
Plan: discharge to home when medically stable
[2024-06-23 10:12] LABS: ALT (SGPT) 91 U/L (0-50); AST (SGOT) 62 U/L (17-59); Albumin 3.9 g/dl (3.5-5.0); Alkaline Phosphatase 236 U/L (38-126); Blood Urea Nitrogen 10 mg/dl (9-20); Calcium 9.1 mg/dl (8.4-10.2); Carbon Dioxide 26 mmol/L (22-30); Chloride 102 mmol/L (98-107); Direct Bilirubin 0.1 mg/dl (0.0-0.4); Estimated Creatinine Clearance 84 ml/min; Glucose 90 mg/dl (70-99); Sodium 136 mmol/L (135-145); Total Bilirubin 0.7 mg/dl (0.2-1.3); Total Protein 6.4 g/dl (6.3-8.2); eGFR > 60.00
[2024-06-23] MEDS: APRESOLINE 5 MG IV ×2 (11:09→18:09)
--- NOTE | 2024-06-23 14:20 | PTCARENOTE ---
Pt received from PACU post ERCP. VSS. Pt denies nausea and pain. Resting comfortably in bed. call stevens within reach, will continue to monitor.
--- NOTE | 2024-06-23 15:01 | CON.GS ---
Consultation
-
Requesting Provider: Carin
Performing Provider: Raymon
Reason for Consultation: Choleochlithiasis
Medical History
-
Chief Complaint: Fall
History of Present Illness:
84M admitted 2 days ago after a fall with head impact in setting of eliquis use. Ecchymosis about the right face and presented to ED for eval. Small IVH noted. Nsg eval and plans expectant mgmt with BP parameters. LFTs were checked and incidentally
elevated. US followed with stones, GBWT and 10mm CBD. MRI subsequently confirmed choledocholithiasis with GI planning ERCP today. He presently denies abd pain but endorses episodic upper abd pain over the past few months. During that time he
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 He has been drinking lots of high fat milkshakes to maintain his weight. He also underwent TAVR last Jan. He is on
eliquis for paroxysmal afib.
Past Medical History
Past Medical History: Other (afib on Eliquis, SVT, prior first degree block ,prostate CA, squamous cell CA of Tongue), Aortic stenosis, MR, BPH, gout Temporal arteritis, BPH, kidney stones, polymyositis rheumatica, aortic stenosis, pulmonary
hypertension, gout, lumbar compression fx, factor V, MRSA)
Past Surgical History: Other (Appendectomy, Cardiac (TAVR, prior ablation ), Orthopedic (knee surgery), Tonsilectomy (adenoidectomy) and Other (squamous cell of tongue and neck /2024, hernia repair, b/l Ptosis repair)
Social History
Tobacco: Former Smoker
Alcohol: None
Drug: None
Personal:
Living: With Family
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
Family History
Family History: Reviewed & Noncontributory
Allergies / Home Medications
Allergy/AdvReac Type Severity Reaction Status Date / Time
pollen extracts Allergy Nasal Verified 06/21/24 13:53
congestion;
hayfever
�Medication �Instructions �Recorded �Confirmed �Type
metoprolol succinate 25 mg 12.5 mg PO HS Blood pressure 10/09/19 06/21/24 History
tablet,extended release 24 hr
tamsulosin 0.4 mg capsule 0.4 mg PO HS Urinary issue 09/07/21 06/21/24 History
apixaban 2.5 mg tablet (Eliquis) 2.5 mg PO HS 06/21/24 06/21/24 History
docusate sodium 100 mg capsule 100 mg PO HS 06/21/24 06/21/24 History
therapeutic multivitamin 1 tab PO DAILY 06/21/24 06/21/24 History
Review of Systems
-
A 10 point review of systems was completed, and was negative except as per HPI.
Physical Exam
Vital Signs
Temp Pulse Resp BP Pulse Ox
97.6 F 70 18 136/65 95
06/23/24 14:50 06/23/24 14:50 06/23/24 14:50 06/23/24 14:50 06/23/24 14:50
06/22/24 06/23/24 06/24/24
06:59 06:59 06:59
Actual Weight 66.366 kg
Body Mass Index (BMI) 22.3
Lab Results
06/23/24 09:28
06/23/24 09:28
WBC 7.0 10^3/uL (4.8-10.8) 06/23/24 09:28
Hgb 8.8 g/dL (13.0-18.0) L 06/23/24 09:28
Hct 26.3 % (39.0-52.0) L 06/23/24 09:28
Plt Count 164 10^3/uL (130-400) 06/23/24 09:28
Abs Immat Gran (auto) 0.0 10^3/uL (0-0.05) 06/22/24 05:54
Neutrophils % 63.3 % (42.2-75.2) 06/22/24 05:54
Physical Exam
General: No Apparent Distress
GI: Soft, Non Tender and Non Distended
Skin: Warm and Dry
Neuro: AO x 3
Psych: Calm
Data Reviewed
-
Ultrasound: Image Personally Visualized and interpreted, Report Reviewed by me, Discussed with Patient and Discussed with Family
MRI: Image Personally Visualized and interpreted, Report Reviewed by me, Discussed with Patient and Discussed with Family
Medical Tests (Nuc Med, Echo etc): Image Personally Visualized and interpreted and Report Reviewed by me
Assessment / Plan
-
84M with traumatic IVH on eliquis for expectant mgmt and incidental choledocholithiasis
AFVSS, denies abd pain, benign abd exam
No leukocytosis, Tbili WNL, AST/ALT/ALP mildly elevated
US with large echogenic gallstones and 5mm GBWT (suspect chronic), 10mm CBD
MRI with choledocholithiasis
ERCP with patent cystic duct
We discussed the prophylactic rationale of CCY in this setting. Pros and cons of proceeding with CCY this admit vs deferring were also discussed. He is unsure if he wishes to proceed with surgery this admit or at all. He reports improvement in
dysphagia with more advanced healing of his tongue and he is hopeful he can modify his diet accordingly to avoid triggering biliary issues. Advised to maintain NPO after MN if he wishes to preserve the option of surgery tomorrow.
For ERCP with GI today
Hold eliquis until a decision about surgery is made
All other care as per primary team
--- NOTE | 2024-06-23 15:26 | W.PN.HOSP.TC ---
Today's Communication/Plan
-
ERCP today
N.p.o. after midnight, holding Eliquis for possible CCY
Assessment / Plan
Assessment / Plan
Physical Exam
General: Well Developed, Well Nourished and No Apparent Distress
HEENT: NormoCephalic, Moist mucous membranes, Atraumatic and Other (erythema right eye, periorbital echymosis )
Respiratory: Clear
Cardiac: S1/S2 and Regular Rhythm; No Murmur or Rub
GI: Soft, Non Tender, Non Distended and Normal Bowel Sounds; No Organomegaly
Rectal: Deferred by Provider
Musculoskeletal: No Clubbing, No Cyanosis and No Edema
Skin: No Rash
Neuro: Nonfocal/grossly intact
# Small intraventricular hemorrhage along the right lateral ventricle
-repeat ct head stable
-await nsg recs, no acute interventions
-can resume Eliquis as per NSG
- maintain bp not above 140-150
# Ecchymosis of right face/periorbital with conjunctival hemorrhage from fall
-No symptoms
-pt/ot
-holter outpt
#Transaminitis
# Choledocholithiasis
#Cholecystitis
� Hold apixaban
� Possible CCY tomorrow
� ERCP today, remove stone
� Appreciate GI, surgery recs
# Right shoulder ecchymosis from fall
-Shoulder x-ray negative
Paroxysmal atrial fibrillation
-Continue metoprolol
Aortic stenosis status post TAVR in January
-Attending cardiac rehab
-f/u cards outpt
History of SVT status post ablation
-f/u cards for possible holter
Essential hypertension
-Continue losartan
Pulmonary hypertension
Polymyalgia rheumatica
Macrocytic anemia
Giant arteritis
BPH
-Continue tamsulosin
Gout
-Continue allopurinol
Factor V Leyden mutation
Prostate cancer status post radiation
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
History of MRSA infection of left knee joint/bacteremia
Full code
DVT prophylaxis SCDs
Regular diet
Total time spent on today's encounter was 50 minutes which included time spent in counseling the patient/family regarding diagnosis and treatment plan as listed above, goals of care, and symptom management. Case was discussed with nursing staff,
specialists, and care coordinators/case management. All labs and imaging personally reviewed by me. Remainder the time spent in detailed review of previous records, lab data, imaging, and other medical provider documentation.
Anticipated Discharge: 24 - 48 hours
Subjective/Interval History
-
Date of Service: June 23, 2024
ERCP today
Objective Data
-
Labs:
Laboratory Results
06/23/24 06/23/24 06/23/24
09:28 09:28 09:28
WBC 7.0
Hgb 8.8 L
Hct 26.3 L
Plt Count 164
Sodium 136
Potassium 4.0
Chloride 102
Carbon Dioxide 26
BUN 10
Creatinine 0.6 L
Glucose 90
Calcium 9.1
Total Bilirubin Cancelled 0.7
AST Cancelled 62 H
ALT Cancelled
Alkaline Phosphatase
06/23/24 06/23/24
09:28 09:28
WBC
Hgb
Hct
Plt Count
Sodium
Potassium
Chloride
Carbon Dioxide
BUN
Creatinine
Glucose
Calcium
Total Bilirubin
AST
ALT 91 H
Alkaline Phosphatase Cancelled 236 H
Vital Signs:
Vital Signs
Temp Pulse Resp BP Pulse Ox
97.6 F 70 18 136/65 95
06/23/24 14:50 06/23/24 14:50 06/23/24 14:50 06/23/24 14:50 06/23/24 14:50
I&O
06/22/24 06/23/24 06/24/24
06:59 06:59 06:59
Intake Total 480 / 480
Output Total 725 / 725
Balance -245 / -245
Review of Systems
-
History Source: Patient
All other systems: Not reviewed unless documented
Data Reviewed
-
Diagnostic Radiology: Report Reviewed by me
CT Scan: Report Reviewed by me
Labs: Labs Reviewed by me
[2024-06-23] MEDS: TOPROL XL 12.5 MG PO (21:02)
[2024-06-23] MEDS: COLACE 100 MG PO (21:02)
[2024-06-23] MEDS: FLOMAX 0.4 MG PO (21:02)
[2024-06-24] VITALS (15 sets, daily range): BP systolic 126–160; BP diastolic 50–84; PULSE 79–82; O2SAT 98–99
[2024-06-24] MEDS: APRESOLINE 5 MG IV ×3 (04:05→20:06)
[2024-06-24] MEDS: UNASYN IV ×4 (04:05→21:30)
[2024-06-24 06:18] LABS: Hematocrit 26.3 % (39.0-52.0); Hemoglobin 8.8 g/dL (13.0-18.0); Mean Corp Hgb Conc. 33.5 g/dL (33.0-37.0); Mean Corpuscular Hgb 31.8 pg (27.0-31.0); Mean Corpuscular Volume 94.9 fL (80.0-94.0); Mean Platelet Volume 10.4 fL (7.4-10.4); Platelet Count 146 10^3/uL (130-400); Red Blood Cell Count 2.77 10^6/uL (4.70-6.10); Red Cell Dist. Width 14.7 % (11.5-14.5); White Blood Cell Count 9.9 10^3/uL (4.8-10.8)
[2024-06-24 06:51] LABS: ALT (SGPT) 156 U/L (0-50); AST (SGOT) 187 U/L (17-59); Albumin 3.5 g/dl (3.5-5.0); Alkaline Phosphatase 282 U/L (38-126); Blood Urea Nitrogen 12 mg/dl (9-20); Carbon Dioxide 25 mmol/L (22-30); Chloride 105 mmol/L (98-107); Estimated Creatinine Clearance 72 ml/min; Glucose 97 mg/dl (70-99); Potassium 3.9 mmol/L (3.5-5.1); Sodium 137 mmol/L (135-145); Total Bilirubin 1.5 mg/dl (0.2-1.3); Total Protein 6.3 g/dl (6.3-8.2); eGFR > 60.00
[2024-06-24] MEDS: THERAGRAN PO (08:22)
--- NOTE | 2024-06-24 09:07 | W.PN.GI.CBS2 ---
Addendum entered and electronically signed by Vanessa Marin MD 06/24/24 13:27:
I saw and examined the patient.
The REAL ESTATE LEASING MANAGER or PA's note was reviewed and I agree with the note.
Comment: Patient reports some epigastric discomfort, describes it as burning sensation/regurgitation which she has had before. No nausea or vomiting. No fevers or chills. Tolerating clear liquid diet.
He is status post ERCP with biliary sphincterotomy and balloon extraction of common duct stone.
LFTs did trend up slightly since the ERCP but not significant.
Will continue to trend LFTs.
Await surgical evaluation regarding timing of cholecystectomy.
If cholecystectomy is planned for outpatient, agree with low-fat diet and resuming Eliquis.
No further GI testing planned at this time.
Original Note:
Today's Communication / Plan
-
s/p ERCP--no abdominal pain but c/o some indigestion
will add PPI daily
Dr. Marin sent message to surgery to review for antony and pt debating timing of proceeding
LFt's with slight rise post procedure will repeat in AM
pt has remained NPO this am til review with surgery-- if opting for surgery then NPO and continue diet and Eliquis per surgical team
if opting for Outpatient surgery ok to trial low fat diet and resume Eliquis today
Last Eliquis Friday
s/p neurosurgical eval with small bleed with fall -- reviewed with neurosurgery Dr. Angulo 06/22 con to avoid HTN
all questions answered
Assessment / Plan
-
Pt is a 84yo presents hx with prior TAVR 01/2024 at [facility], squamous cell of tongue in past and recent noted growth with resection and neck [id number] at [place], prostate CA s/p radiation, PAF on Eliquis, SVT, Temporal arteritis,
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
10 now presents with fall with noted facial, eye and shoulder bruising. He went to cardiac rehab and was sent to ER for evaluation. In ER noted with small volume subacute intraventricular hemorrhage in dependent portion of Occipital horn of right
lateral ventricle with neurosurgical evaluation. He was also noted after admission noted with bili 0.7, AST 91, ALT 121, alk phos 259 with normal LFT's in 2021. US was completed with cholelithiasis with thickening of the gallbladder wall 5 mm
suggesting cholecystitis and dilatation of the common duct to 10 mm suggesting possible choledocholithiasis.
06/22/24 MR Abdomen W/o & W Contrast
Gallbladder contains multiple stones. Crescentic fluid signal intensity along the anterior margin of the gallbladder. It is unclear if this represents fluid in the gallbladder lumen interposed between the gallbladder wall and a stone, or if this
represents pericholecystic fluid. Ultrasound performed the same day revealed gallbladder wall thickening. The combination of gallstones, gallbladder wall thickening shown by ultrasound, and possible pericholecystic fluid shown by this exam are
worrisome for acute cholecystitis
There is evidence for a 7 x 3 mm stone in the mid to distal common bile duct. This causes mild upstream distention of the common bile duct
Nonenhancing cystic lesion containing thin septation in the uncinate process of pancreas. 8 mm simple cystic lesion in the pancreatic neck. 4 mm simple cystic lesion in pancreatic body. Possible etiologies include cysts, pseudocysts, intraductal
papillary mucinous neoplasia. Follow-up MRI in 4-6 months recommended for reevaluation.
1.2 cm low signal focus in the right superior aspect of the urinary bladder. Differential diagnosis includes bladder calculus, sloughed papilla, intraluminal blood clot. If clinically warranted, urinary bladder ultrasound could provide further
evaluation
06/23 ERCP - The major papilla appeared normal.
- A filling defect consistent with a stone was seen on
the cholangiogram.
- The common bile duct was mildly dilated.
- Choledocholithiasis was found. Complete removal was
accomplished by biliary sphincterotomy and balloon
extraction.
- A biliary sphincterotomy was performed.
- The biliary tree was swept.
Laboratory Tests
06/23/24 06/24/24
09:28 05:51
Total Bilirubin 0.7 1.5 H
AST 62 H 187 H
ALT 91 H 156 H
Alkaline Phosphatase 236 H 282 H
-s/p fall with noted small volume subacute intraventricular hemorrhage in dependent portion of Occipital horn of right lateral ventricle, facial, conjunctiva, shoulder bruising
- LFT elevation
-imaging with MRI with concern for choledocholithiasis s/p ERCP
-cholelithiasis/ possible cholecystitis
-pancreatic cysts
-bladder focus on MRI- stone, sloughed papulla, vs intraluminal blood clot
-recent wt loss 40 lbs over last year
-s/p TAVR 01/2024 [facility]
-hx prior squamous cell tongue then recent growth with removal and reconstruction with neck dissection 03/2024
-dysphagia s/p tongue reconstruction
-chronic macrocytic anemia baseline hbg around 10
-PAF on Eliquis
other med problems:
-prostate CA with prior Lupron and radiation
-SVT
-temp arteritis
-BPH
-renal stones
-polymyositis rheumatica
-pulm HTN
-gout
-MRSA knee and bacteremia
-hx comp fracture
-factor V Leyden carrier
PLAN:
s/p ERCP--no abdominal pain but c/o some indigestion
will add PPI daily
Dr. Marin sent message to surgery to review for antony and pt debating timing of proceeding
LFt's with slight rise post procedure will repeat in AM
pt has remained NPO this am til review with surgery-- if opting for surgery then NPO and continue diet and Eliquis per surgical team
if opting for Outpatient surgery ok to trial low fat diet and resume Eliquis today
Last Eliquis Friday
s/p neurosurgical eval with small bleed with fall -- reviewed with neurosurgery Dr. Angulo 06/22 con to avoid HTN
all questions answered
Subjective
Subjective
Date of Service: June 24, 2024
complaints of some indigestion but no abdominal pain, no stools
Objective
Data Reviewed
Laboratory Data:
Laboratory Results
06/24/24 05:51
06/24/24 05:51
Laboratory Results
PT 15.3 Sec (11.4-14.6) H 06/21/24 16:45
INR 1.18 06/21/24 16:45
APTT 36.8 Sec (23.4-35.0) H 06/21/24 16:45
Total Bilirubin 1.5 mg/dl (0.2-1.3) H 06/24/24 05:51
AST 187 U/L (17-59) H 06/24/24 05:51
ALT 156 U/L (0-50) H 06/24/24 05:51
Alkaline Phosphatase 282 U/L (38-126) H 06/24/24 05:51
Vital Signs and I&O:
Vital Signs
Temp Pulse Resp BP Pulse Ox
96.0 F L 87 18 158/83 96
06/24/24 07:30 06/24/24 08:14 06/24/24 07:30 06/24/24 08:14 06/24/24 07:30
I&O
06/23/24 06/24/24 06/25/24
06:59 06:59 06:59
Intake Total 480 / 480 940 / 940
Output Total 725 / 725 1140 / 1140
Balance -245 / -245 -200 / -200
Physical Exam
Physical Exam
HEENT: Anicteric, Moist mucous membranes and Other (right sided facial bruising )
Cardiology: Normal Sinus Rhythm
Pulmonary: Clear
GI: Soft, Non Distended and Non Tender
Extremities: No Edema
Neuro: Non Focal
[2024-06-24] MEDS: PROTONIX IV 40 MG IV (09:17)
[2024-06-24] MEDS: NSS (PRESERVATIVE FREE) 10 ML IV (09:18)
--- NOTE | 2024-06-24 15:15 | W.PN.HOSP.TC ---
Today's Communication/Plan
-
CCY today
NPO
Assessment / Plan
Assessment / Plan
Physical Exam
General: Well Developed, Well Nourished and No Apparent Distress
HEENT: NormoCephalic, Moist mucous membranes, Atraumatic and Other (erythema right eye, periorbital echymosis )
Respiratory: Clear
Cardiac: S1/S2 and Regular Rhythm; No Murmur or Rub
GI: Soft, Non Tender, Non Distended and Normal Bowel Sounds; No Organomegaly
Rectal: Deferred by Provider
Musculoskeletal: No Clubbing, No Cyanosis and No Edema
Skin: No Rash
Neuro: Nonfocal/grossly intact
# Small intraventricular hemorrhage along the right lateral ventricle
-repeat ct head stable
-NSG recS: no acute interventions
-can resume Eliquis as per NSG
- maintain bp not above 140-150
-Obtain repeat CT scan of the head in approximately 3 to 4 weeks. Follow-up in the office thereafter.
# Ecchymosis of right face/periorbital with conjunctival hemorrhage from fall
-No symptoms
-pt/ot
-holter outpt
#Transaminitis
# Choledocholithiasis
#Cholecystitis
� Hold apixaban for surgery
� CCY today
� S/p ERCP 06/23: ERCP with biliary sphincterotomy and balloon extraction of common duct stone
� Appreciate GI, surgery recs
-LFD thereafter
# Right shoulder ecchymosis from fall
-Shoulder x-ray negative
Paroxysmal atrial fibrillation
-Continue metoprolol
-Hydral iv prn
Aortic stenosis status post TAVR in January
-Attending cardiac rehab
-f/u cards outpt
History of SVT status post ablation
-f/u cards for possible holter
Essential hypertension
-bb, hydral
Pulmonary hypertension
Polymyalgia rheumatica
Macrocytic anemia
Giant arteritis
BPH
-Continue tamsulosin
Gout
-Continue allopurinol
Factor V Leyden mutation
Prostate cancer status post radiation
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
History of MRSA infection of left knee joint/bacteremia
Full code
DVT prophylaxis SCDs
Regular diet
Total time spent on today's encounter was 55 minutes which included time spent in counseling the patient/family regarding diagnosis and treatment plan as listed above, goals of care, and symptom management. Case was discussed with nursing staff,
specialists, and care coordinators/case management. All labs and imaging personally reviewed by me. Remainder the time spent in detailed review of previous records, lab data, imaging, and other medical provider documentation.
Anticipated Discharge: Within 24 hours
Subjective/Interval History
-
Date of Service: June 24, 2024
s/p ERCP with biliary sphincterotomy and balloon extraction of common duct stone; mild possible acid reflux, midepigastric discomfort - improved with PPI
Objective Data
-
Labs:
Laboratory Results
06/24/24
05:51
WBC 9.9
Hgb 8.8 L
Hct 26.3 L
Plt Count 146
Sodium 137
Potassium 3.9
Chloride 105
Carbon Dioxide 25
BUN 12
Creatinine 0.7
Glucose 97
Calcium 9.0
Total Bilirubin 1.5 H
AST 187 H
ALT 156 H
Alkaline Phosphatase 282 H
Vital Signs:
Vital Signs
Temp Pulse Resp BP Pulse Ox
97.4 F 82 18 156/72 99
06/24/24 11:50 06/24/24 11:50 06/24/24 11:50 06/24/24 11:50 06/24/24 11:50
I&O
06/23/24 06/24/24 06/25/24
06:59 06:59 06:59
Intake Total 480 / 480 940 / 940
Output Total 725 / 725 1140 / 1140
Balance -245 / -245 -200 / -200
Review of Systems
-
History Source: Patient
All other systems: Not reviewed unless documented
Data Reviewed
-
Diagnostic Radiology: Report Reviewed by me
CT Scan: Report Reviewed by me
Labs: Labs Reviewed by me
--- NOTE | 2024-06-24 15:16 | W.PN.GS2 ---
Today's Communication / Plan
-
`
Assessment / Plan
-
Assessment: 84-year-old male found to have choledocholithiasis, ultrasound and MRI imaging also confirms gallstones and gallbladder wall thickening
Now status post ERCP, sphincterotomy stone extraction. Doing well post procedure. Confirm indications to offer cholecystectomy. Patient wishes to proceed with cholecystectomy.
Laparoscopic cholecystectomy with possible intraoperative cholangiogram was reviewed in detail the patient and his at bedside. We discussed the typical surgical technique, potential operative findings and the management, alternative treatment
options, benefits and risk such as but not limited to bleeding requiring transfusion, infectious and wound related complications, iatrogenic injury to surrounding viscera. We discussed the typical postoperative recovery pending operative findings.
Any of the patient's or his 's concerns or questions were fully addressed.
Plan: Patient is on the OR schedule for this afternoon/evening for lap antony
Continue current care pending OR timing
Subjective Data
-
Date of Service: June 24, 2024
Patient seen in follow-up. at bedside.
He is feeling well after having undergone ERCP yesterday.
Denies abdominal pain
Advises that he wishes to proceed with cholecystectomy for management of gallstone mediated complications.
Objective Data
-
Intake and Output
06/23/24 06/24/24 06/25/24
06:59 06:59 06:59
Intake Total 480 / 480 940 / 940
Output Total 725 / 725 1140 / 1140
Balance -245 / -245 -200 / -200
Intake:
Oral fluids 480 / 480 700 / 700
IV piggybacks 240 / 240
Output:
Urine, Voided 725 / 725 1140 / 1140
Vital Signs
Temp Pulse Resp BP Pulse Ox
97.4 F 82 18 156/72 99
06/24/24 11:50 06/24/24 11:50 06/24/24 11:50 06/24/24 11:50 06/24/24 11:50
Lab Results
06/24/24 05:51
06/24/24 05:51
Calcium 9.0 mg/dl (8.4-10.2) 06/24/24 05:51
Total Bilirubin 1.5 mg/dl (0.2-1.3) H 06/24/24 05:51
Direct Bilirubin 0.1 mg/dl (0.0-0.4) 06/23/24 09:28
Direct Bilirubin Cancelled 06/23/24 09:28
AST 187 U/L (17-59) H 06/24/24 05:51
ALT 156 U/L (0-50) H 06/24/24 05:51
Alkaline Phosphatase 282 U/L (38-126) H 06/24/24 05:51
Total Protein 6.3 g/dl (6.3-8.2) 06/24/24 05:51
Albumin 3.5 g/dl (3.5-5.0) 06/24/24 05:51
Physical Exam
-
NAD AAOx3
--- NOTE | 2024-06-24 16:13 | W.SUR.PREOP ---
Pre-Operative Surgical Note
-
I have examined this patient prior to the performance of the scheduled procedure.
The patient's condition is unchanged from the time of the current History and
Physical and the patient is able to undergo the scheduled procedure.
--- NOTE | 2024-06-24 18:27 | W.IMMPOSTOP ---
Addendum entered and electronically signed by Dirk Correia MD 06/24/24 19:02:
#[id number]
Original Note:
Surgical Immed Post Op Note
-
Primary Surgeon: Bren
Assisting Surgeon: Isaac Harvey PGY1
Pre-op Diagnosis: Choledocholithiasis, cholelithiasis
Post-op Diagnosis: Choledocholithiasis, cholelithiasis
Procedure Performed: Laparoscopic cholecystectomy
Anesthesia Type: GETA +0.25% Marcaine with epi
Specimen / Cultures: Gallbladder/none
Estimated Blood Loss: 20 mL
Complications: None immediate
Operative Findings: Distended gallbladder filled with sludge and stones. No adhesions. Moderately dilated cystic duct. Cystic duct and artery individually controlled with clips. Gallbladder removed off liver bed and extracted at epigastric port
site.
Plan: Regular/low-fat diet as tolerated postop
Therapeutic anticoagulation should be held for 72 hours postoperatively
Updated patient's via phone call postop
[2024-06-24] MEDS: NSS 1000 IV (19:29)
[2024-06-24] MEDS: ROXICODONE 5 MG PO (20:06)
--- NOTE | 2024-06-24 20:30 | PTCARENOTE ---
Pt arrived to floor from PACU- Pt post lap antony. Pt AAOx3. POX 95% on RA. Lungs dec @ bases. Pt with recent reconstruction surgery of the tongue, with slight garbled speech. Right face and right shoulder ecchymosis noted from previous fall. 5 lap
sites on abd assessed with surg glue in place, open to air. pt reports pain at tolerable level at this time. Right forearm int infusing IVF as ordered. at bedside. Vital signs stable. Will continue to monitor.
[2024-06-24] MEDS: FLOMAX 0.4 MG PO (21:29)
[2024-06-24] MEDS: TOPROL XL 12.5 MG PO (21:29)
[2024-06-24] MEDS: COLACE 100 MG PO (21:29)
[2024-06-25] VITALS (8 sets, daily range): BP systolic 123–187; BP diastolic 73–97
[2024-06-25] MEDS: UNASYN IV ×4 (03:31→22:19)
[2024-06-25] MEDS: NSS IV ×2 (07:45→20:20)
[2024-06-25 08:28] LABS: Hematocrit 27.3 % (39.0-52.0); Mean Corpuscular Hgb 31.9 pg (27.0-31.0); Mean Corpuscular Volume 96.8 fL (80.0-94.0); Mean Platelet Volume 10.4 fL (7.4-10.4); Platelet Count 147 10^3/uL (130-400); Red Blood Cell Count 2.82 10^6/uL (4.70-6.10); Red Cell Dist. Width 15.2 % (11.5-14.5); White Blood Cell Count 10.2 10^3/uL (4.8-10.8)
[2024-06-25] MEDS: NSS (PRESERVATIVE FREE) 10 ML IV (08:47)
[2024-06-25] MEDS: PROTONIX IV 40 MG IV (08:48)
[2024-06-25] MEDS: APRESOLINE 5 MG IV ×2 (08:51→15:17)
[2024-06-25] MEDS: THERAGRAN 1 TABLET PO (08:56)
[2024-06-25 08:57] LABS: ALT (SGPT) 212 U/L (0-50); AST (SGOT) 285 U/L (17-59); Albumin 3.8 g/dl (3.5-5.0); Alkaline Phosphatase 380 U/L (38-126); Blood Urea Nitrogen 14 mg/dl (9-20); Calcium 8.9 mg/dl (8.4-10.2); Carbon Dioxide 25 mmol/L (22-30); Chloride 104 mmol/L (98-107); Estimated Creatinine Clearance 84 ml/min; Glucose 93 mg/dl (70-99); Sodium 137 mmol/L (135-145); Total Bilirubin 1.9 mg/dl (0.2-1.3); Total Protein 6.5 g/dl (6.3-8.2); eGFR > 60.00
--- NOTE | 2024-06-25 09:03 | W.PN.GI.CBS2 ---
Today's Communication / Plan
-
trend bili monitor for pain
Assessment / Plan
-
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 Found to have choledocholithiasis Status post
ERCP June [address] Schwab. Underwent cholecystectomy with Dr. Correia in June 24. Plan was discharged today however his bilirubin has been increased from 1.5 yesterday to 1.9 today. I discussed with the biliary team it could be related to
the recent cholecystectomy or edema if continues to rise or have pain recommend repeat imaging to rule out bile leak or biloma with HIDA or MRCP or CT. He had a significant amount of stones in the gallbladder. I discussed with the hospitalist. We
will watch him today and make sure his bili starts to drop and that he does not develop any pain. Can continue low-fat diet, resume Eliquis per surgery and Dr. Schwab, continue antibiotics for now.
Subjective
Subjective
Date of Service: June 25, 2024
feels well minimal incisional pain
Objective
Data Reviewed
Laboratory Data:
Laboratory Results
06/25/24 08:18
06/25/24 08:18
Laboratory Results
PT 15.3 Sec (11.4-14.6) H 06/21/24 16:45
INR 1.18 06/21/24 16:45
APTT 36.8 Sec (23.4-35.0) H 06/21/24 16:45
Total Bilirubin 1.9 mg/dl (0.2-1.3) H 06/25/24 08:18
AST 285 U/L (17-59) H 06/25/24 08:18
ALT 212 U/L (0-50) H 06/25/24 08:18
Alkaline Phosphatase 380 U/L (38-126) H 06/25/24 08:18
Vital Signs and I&O:
Vital Signs
Temp Pulse Resp BP Pulse Ox
96.5 F L 82 12 177/86 97
06/25/24 07:41 06/25/24 07:41 06/25/24 07:41 06/25/24 07:41 06/25/24 07:41
I&O
06/24/24 06/25/24 06/26/24
06:59 06:59 06:59
Intake Total 940 / 940 1040 / 1040
Output Total 1140 / 1140
Balance -200 / -200 1040 / 1040
Physical Exam
Physical Exam
HEENT: Anicteric
Cardiology: Normal Sinus Rhythm
Pulmonary: Clear
GI: Non Distended and Non Tender
[2024-06-25 09:09] LABS: Potassium 4.1 mmol/L (3.5-5.1)
--- NOTE | 2024-06-25 09:31 | W.PN.GS2 ---
Addendum entered and electronically signed by Matt Webber MD 06/25/24 13:23:
Bilirubin up to 1.9, likely reactive but reasonable to observe for 1 more day versus recheck later this afternoon. Will defer to primary.
Original Note:
Today's Communication / Plan
-
Dispo planning
Assessment / Plan
-
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
Now status post ERCP, sphincterotomy stone extraction. Doing well post procedure. Confirm indications to offer cholecystectomy. Patient wishes to proceed with cholecystectomy.
Laparoscopic cholecystectomy with possible intraoperative cholangiogram was reviewed in detail the patient and his at bedside. We discussed the typical surgical technique, potential operative findings and the management, alternative treatment
options, benefits and risk such as but not limited to bleeding requiring transfusion, infectious and wound related complications, iatrogenic injury to surrounding viscera. We discussed the typical postoperative recovery pending operative findings.
Any of the patient's or his 's concerns or questions were fully addressed.
Okay to DC from a surgical perspective.
DC instructions placed
Time Spent
Total Time Spent with Patient (in minutes): 20
Subjective Data
-
Date of Service: June 25, 2024
Interval Events:
No acute events overnight. Slept well. Pain Controlled. Denies Nausea/Vomiting, +bowel function. Tolerating diet.
Objective Data
-
Intake and Output
06/24/24 06/25/24 06/26/24
06:59 06:59 06:59
Intake Total 940 / 940 1040 / 1040
Output Total 1140 / 1140
Balance -200 / -200 1040 / 1040
Intake:
Oral fluids 700 / 700 600 / 600
IV fluids (Total) 200 / 200
NORMOSAL 200 / 200
IV piggybacks 240 / 240 240 / 240
Output:
Urine, Voided 1140 / 1140
Other:
Number of approximated MODERATE 3
amounts of urine
Vital Signs
Temp Pulse Resp BP Pulse Ox
96.5 F L 85 12 150/78 97
06/25/24 07:41 06/25/24 08:51 06/25/24 07:41 06/25/24 08:51 06/25/24 07:41
Lab Results
06/25/24 08:18
06/25/24 08:18
Calcium 8.9 mg/dl (8.4-10.2) 06/25/24 08:18
Total Bilirubin 1.9 mg/dl (0.2-1.3) H 06/25/24 08:18
Direct Bilirubin 0.1 mg/dl (0.0-0.4) 06/23/24 09:28
Direct Bilirubin Cancelled 06/23/24 09:28
AST 285 U/L (17-59) H 06/25/24 08:18
ALT 212 U/L (0-50) H 06/25/24 08:18
Alkaline Phosphatase 380 U/L (38-126) H 06/25/24 08:18
Total Protein 6.5 g/dl (6.3-8.2) 06/25/24 08:18
Albumin 3.8 g/dl (3.5-5.0) 06/25/24 08:18
Physical Exam
-
GENERAL/NEURO: Awake, Alert, no distress
CHEST: Unlabored breathing on RA
ABDOMEN: Soft, Non-Tender, Non-Distended, incisions clean dry and intact.
Patient has a cam catheter: No
Patient has a central line: No
--- NOTE | 2024-06-25 11:34 | W.PN.HOSP.TC ---
Addendum entered and electronically signed by Tyrese Hdz MD 06/25/24 11:47:
Bilis trending up, cont to monitor until trending down
Original Note:
Today's Communication/Plan
-
LFD
Eliquis to restart 06/28
f/u lfts outpt
f/u ct head in 3-4 weeks
mri pancreas in 4-6 months
f/u pcp, gi, surgery, cards, NSG outpatient
Assessment / Plan
Assessment / Plan
Physical Exam
General: Well Developed, Well Nourished and No Apparent Distress
HEENT: NormoCephalic, Moist mucous membranes, Atraumatic and Other (erythema right eye, periorbital echymosis )
Respiratory: Clear
Cardiac: S1/S2 and Regular Rhythm; No Murmur or Rub
GI: Soft, Non-Tender, Non-Distended, incisions clean dry and intact.
Rectal: Deferred by Provider
Musculoskeletal: No Clubbing, No Cyanosis and No Edema
Skin: No Rash
Neuro: Nonfocal/grossly intact
# Small intraventricular hemorrhage along the right lateral ventricle
-repeat ct head stable
-NSG recs: no acute interventions
-can resume Eliquis as per NSG
- maintain bp not above 140-150
-Obtain repeat CT scan of the head in approximately 3 to 4 weeks. Follow-up in the office thereafter.
-OK for cardiac rehab as per NSG
# Ecchymosis of right face/periorbital with conjunctival hemorrhage from fall
-No symptoms
-pt/ot
-holter outpt
#Transaminitis
# Choledocholithiasis
#Cholecystitis
� Hold apixaban post op until 06/28
� CCY 06/24
� S/p ERCP 06/23: ERCP with biliary sphincterotomy and balloon extraction of common duct stone
� Appreciate GI, surgery recs
-LFD f.u outpt
# Right shoulder ecchymosis from fall
-Shoulder x-ray negative
Paroxysmal atrial fibrillation
-Continue metoprolol
-Hydral iv prn
Aortic stenosis status post TAVR in January
-Attending cardiac rehab
-f/u cards outpt
History of SVT status post ablation
-f/u cards for possible holter
Essential hypertension
-bb, hydral
Pulmonary hypertension
Polymyalgia rheumatica
Macrocytic anemia
Giant arteritis
BPH
-Continue tamsulosin
Gout
-Continue allopurinol
Factor V Leyden mutation
Prostate cancer status post radiation
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
History of MRSA infection of left knee joint/bacteremia
Nonenhancing cystic lesion containing thin septation in the uncinate process of pancreas.
-8 mm simple cystic lesion in the pancreatic neck. 4 mm simple cystic lesion in pancreatic body. Possible etiologies include cysts, pseudocysts, intraductal papillary mucinous neoplasia.
-Follow-up MRI in 4-6 months recommended for reevaluation.
Full code
DVT prophylaxis SCDs
Regular diet
More than 30 minutes spent in discharge including
Final examination of the patient
Summarizing hospital stay
Instructions for continuing care to all relevant caregivers
Preparation of discharge records, prescriptions, and referral forms
Total time spent (37 in minutes):
Anticipated Discharge: Today
Subjective/Interval History
-
Date of Service: June 25, 2024
no acute events, tolerating LFD well
Objective Data
-
Labs:
Laboratory Results
06/25/24
08:18
WBC 10.2
Hgb 9.0 L
Hct 27.3 L
Plt Count 147
Sodium 137
Potassium 4.1
Chloride 104
Carbon Dioxide 25
BUN 14
Creatinine 0.6 L
Glucose 93
Calcium 8.9
Total Bilirubin 1.9 H
AST 285 H
ALT 212 H
Alkaline Phosphatase 380 H
Vital Signs:
Vital Signs
Temp Pulse Resp BP Pulse Ox
96.5 F L 85 12 150/78 97
06/25/24 07:41 06/25/24 08:51 06/25/24 07:41 06/25/24 08:51 06/25/24 07:41
I&O
06/24/24 06/25/24 06/26/24
06:59 06:59 06:59
Intake Total 940 / 940 1040 / 1040
Output Total 1140 / 1140
Balance -200 / -200 1040 / 1040
Review of Systems
-
History Source: Patient
All other systems: Not reviewed unless documented
Data Reviewed
-
Diagnostic Radiology: Report Reviewed by me
CT Scan: Report Reviewed by me
Labs: Labs Reviewed by me
--- NOTE | 2024-06-25 11:38 | W.DS.TRANS ---
DC Summary - [place] Operator
-
Discharge Instructions:
Discharge Diagnosis/Procedures Small intraventricular hemorrhage along the
right lateral ventricle
Ecchymosis of right face/periorbital with
conjunctival hemorrhage from fall
choledocholithiasis
gallbladder wall thickening
Diet Low Fat,Low Cholesterol
Activity As tolerated
Blood Work lfts within 5-7 days with pcp/gi
Others Tests Obtain repeat CT scan of the head in
approximately 3 to 4 weeks. Follow-up in the
Neurosurgery office thereafter.
Follow up with MRI/GI to continue monitoring
pancreatic cysts
Instructions:
Stand-Alone Forms:
Changes to Home Medications: Yes
Discharge Medications:
DC Medications w/original date entered in [employer]
metoprolol succinate 25 mg tablet,extended release 24 hr 12.5 mg PO HS Blood pressure 10/09/19
tamsulosin 0.4 mg capsule 0.4 mg PO HS Urinary issue 09/07/21
apixaban 2.5 mg tablet (Eliquis) 2.5 mg PO HS Blood Clot Prevention/Tx 06/21/24
docusate sodium 100 mg capsule 100 mg PO HS Constipation 06/21/24
therapeutic multivitamin 1 tab PO DAILY Supplement 06/21/24
acetaminophen 500 mg tablet (Tylenol Extra Strength) 1,000 mg (2 x 500 mg) PO Q8HPRN PRN mild pain #180 tabs 06/25/24
oxycodone 5 mg tablet 5 mg PO Q4HPRN PRN severe pain #12 tabs 06/25/24
Home Medication Changes
acetaminophen 500 mg tablet (Tylenol Extra Strength) 1,000 mg (2 x 500 mg) PO Q8HPRN PRN mild pain #180 tabs 06/25/24
oxycodone 5 mg tablet 5 mg PO Q4HPRN PRN severe pain #12 tabs 06/25/24
Pending Results: No
[2024-06-25] MEDS: PROCARDIA XL (EXTENDED RELEASE) 30 MG PO (20:19)
[2024-06-25] MEDS: TOPROL XL 12.5 MG PO (22:19)
[2024-06-25] MEDS: COLACE 100 MG PO (22:20)
[2024-06-25] MEDS: FLOMAX 0.4 MG PO (22:20)
[2024-06-26] MEDS: UNASYN IV ×2 (04:45→11:10)
[2024-06-26 05:34] VITALS: BP 136/75
[2024-06-26 07:00] VITALS: BP 133/64
[2024-06-26] MEDS: PROTONIX IV 40 MG IV (07:28)
[2024-06-26] MEDS: NSS (PRESERVATIVE FREE) 10 ML IV (07:28)
[2024-06-26] MEDS: PROCARDIA XL (EXTENDED RELEASE) 30 MG PO (07:29)
[2024-06-26] MEDS: THERAGRAN 1 TABLET PO (07:29)
[2024-06-26 08:00] VITALS: BMI 22.3
[2024-06-26 09:54] LABS: Hemoglobin 8.6 g/dL (13.0-18.0); Mean Corp Hgb Conc. 31.9 g/dL (33.0-37.0); Mean Corpuscular Hgb 31.2 pg (27.0-31.0); Mean Corpuscular Volume 97.8 fL (80.0-94.0); Mean Platelet Volume 10.3 fL (7.4-10.4); Platelet Count 146 10^3/uL (130-400); Red Blood Cell Count 2.76 10^6/uL (4.70-6.10); Red Cell Dist. Width 15.9 % (11.5-14.5); White Blood Cell Count 7.8 10^3/uL (4.8-10.8)
[2024-06-26 10:11] LABS: % Basophils 0.5 % (0-2); % Eosinophils 1.3 % (0-6); % Immature Granulocytes 0.6 % (0-0.5); % Lymphocytes 11.9 % (20.5-51.1); % Monocytes 14.4 % (1.7-9.3); % Neutrophils 71.3 % (42.2-75.2); Absolute Eosinophils 0.1 10^3/uL (0-0.7); Absolute Immature Granulocytes 0.1 10^3/uL (0-0.05); Absolute Lymphocytes 0.9 10^3/uL (1.2-3.4); Absolute Monocytes 1.1 10^3/uL (0.1-0.6); Absolute Neutrophils 5.6 10^3/uL (1.4-6.5); Nucleated Red Blood Cells % 0 % (-)
[2024-06-26 10:25] LABS: ALT (SGPT) 204 U/L (0-50); AST (SGOT) 253 U/L (17-59); Albumin 3.7 g/dl (3.5-5.0); Alkaline Phosphatase 529 U/L (38-126); Blood Urea Nitrogen 12 mg/dl (9-20); Carbon Dioxide 24 mmol/L (22-30); Chloride 104 mmol/L (98-107); Estimated Creatinine Clearance 84 ml/min; Glucose 92 mg/dl (70-99); Potassium 3.8 mmol/L (3.5-5.1); Sodium 134 mmol/L (135-145); Total Bilirubin 1.6 mg/dl (0.2-1.3); Total Protein 6.3 g/dl (6.3-8.2); eGFR > 60.00
--- NOTE | 2024-06-26 11:44 | W.PN.GS2 ---
Today's Communication / Plan
-
Dispo planning
Assessment / Plan
-
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 He did
have a mild bump in his LFTs yesterday but this has come back down today.
Okay to DC from a surgical perspective.
DC instructions placed, follow-up with Dr. Correia in 2 weeks.
Time Spent
Total Time Spent with Patient (in minutes): 10
Subjective Data
-
Date of Service: June 26, 2024
Interval Events:
No acute events overnight. Slept well. Pain Controlled. Denies Nausea/Vomiting, +bowel function. Tolerating diet.
Objective Data
-
Intake and Output
06/25/24 06/26/24 06/27/24
06:59 06:59 06:59
Intake Total 1040 / 1040 1080 / 1080
Output Total 1375 / 1375
Balance 1040 / 1040 -295 / -295
Intake:
Oral fluids 600 / 600 1080 / 1080
IV fluids (Total) 200 / 200
NORMOSAL 200 / 200
IV piggybacks 240 / 240
Output:
Urine, Voided 1375 / 1375
Other:
Number of approximated MODERATE 3 3
amounts of urine
Vital Signs
Temp Pulse Resp BP Pulse Ox
98.7 F 90 16 133/64 95
06/26/24 07:00 06/26/24 07:29 06/26/24 07:00 06/26/24 07:29 06/26/24 07:00
Lab Results
06/26/24 08:25
06/26/24 08:24
Calcium 9.0 mg/dl (8.4-10.2) 06/26/24 08:24
Total Bilirubin 1.6 mg/dl (0.2-1.3) H 06/26/24 08:24
Direct Bilirubin 0.1 mg/dl (0.0-0.4) 06/23/24 09:28
Direct Bilirubin Cancelled 06/23/24 09:28
AST 253 U/L (17-59) H 06/26/24 08:24
ALT 204 U/L (0-50) H 06/26/24 08:24
Alkaline Phosphatase 529 U/L (38-126) H 06/26/24 08:24
Total Protein 6.3 g/dl (6.3-8.2) 06/26/24 08:24
Albumin 3.7 g/dl (3.5-5.0) 06/26/24 08:24
Physical Exam
-
GENERAL/NEURO: Awake, Alert, no distress
CHEST: Unlabored breathing on RA
ABDOMEN: Soft, Non-Tender, Non-Distended, incisions clean dry and intact.
Patient has a cam catheter: No
Patient has a central line: No
--- NOTE | 2024-06-26 12:08 | W.PN.HOSP.TC ---
Addendum entered and electronically signed by Tyrese Hdz MD 07/06/24 17:19:
Yes, hemorrhage is related to/associated with/exacerbated to Eliquis.
#traumatic injury - with subsequent Small intraventricular hemorrhage
Addendum entered and electronically signed by Tyrese Hdz MD 06/26/24 15:34:
[id number]
Original Note:
Today's Communication/Plan
-
LFD
Eliquis to restart 06/28 (states is on 2.5mg BID until recently as he weaned down himself due to nose bleed); Educated to resume as Rxed and speak to PCP if any changes
f/u lfts outpt
f/u ct head in 3-4 weeks
mri pancreas in 4-6 months
Can resume losartan as patient states he is on, as well as other bp meds
f/u pcp, gi, surgery, cards, NSG outpatient
Assessment / Plan
Assessment / Plan
Physical Exam
General: Well Developed, Well Nourished and No Apparent Distress
HEENT: NormoCephalic, Moist mucous membranes, Atraumatic and Other (erythema right eye, periorbital echymosis )
Respiratory: Clear
Cardiac: S1/S2 and Regular Rhythm; No Murmur or Rub
GI: Soft, Non-Tender, Non-Distended, incisions clean dry and intact.
Rectal: Deferred by Provider
Musculoskeletal: No Clubbing, No Cyanosis and No Edema
Skin: No Rash
Neuro: Nonfocal/grossly intact
# Small intraventricular hemorrhage along the right lateral ventricle
-repeat ct head stable
-NSG recs: no acute interventions
-can resume Eliquis as per NSG
- maintain bp not above 140-150
-Obtain repeat CT scan of the head in approximately 3 to 4 weeks. Follow-up in the office thereafter.
-OK for cardiac rehab as per NSG
# Ecchymosis of right face/periorbital with conjunctival hemorrhage from fall
-No symptoms
-pt/ot
-holter outpt
#Transaminitis
# Choledocholithiasis
#Cholecystitis
� Hold apixaban post op until 06/28
� CCY 06/24
� S/p ERCP 06/23: ERCP with biliary sphincterotomy and balloon extraction of common duct stone
� Appreciate GI, surgery recs
-LFD f.u outpt; All numbers trending down except ALP; spoke to GI - cleared
#Hyponatremia
-mild
-monitor outpt
# Right shoulder ecchymosis from fall
-Shoulder x-ray negative
Paroxysmal atrial fibrillation
-Continue metoprolol
-Hydral iv prn
Aortic stenosis status post TAVR in January
-Attending cardiac rehab
-f/u cards outpt
History of SVT status post ablation
-f/u cards for possible holter
Essential hypertension
-bb, hydral
-apparently on losartan outpt, can resume
Pulmonary hypertension
Polymyalgia rheumatica
Macrocytic anemia
Giant arteritis
BPH
-Continue tamsulosin
Gout
-Continue allopurinol
Factor V Leyden mutation
Prostate cancer status post radiation
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
History of MRSA infection of left knee joint/bacteremia
Nonenhancing cystic lesion containing thin septation in the uncinate process of pancreas.
-8 mm simple cystic lesion in the pancreatic neck. 4 mm simple cystic lesion in pancreatic body. Possible etiologies include cysts, pseudocysts, intraductal papillary mucinous neoplasia.
-Follow-up MRI in 4-6 months recommended for reevaluation.
Full code
DVT prophylaxis SCDs
Regular diet
More than 30 minutes spent in discharge including
Final examination of the patient
Summarizing hospital stay
Instructions for continuing care to all relevant caregivers
Preparation of discharge records, prescriptions, and referral forms
Total time spent (37 in minutes):
Anticipated Discharge: Today
Subjective/Interval History
-
Date of Service: June 26, 2024
no issues, pain improved
Objective Data
-
Labs:
Laboratory Results
06/26/24 06/26/24
08:24 08:25
WBC 7.8
Hgb 8.6 L
Hct 27.0 L
Plt Count 146
Sodium 134 L
Potassium 3.8
Chloride 104
Carbon Dioxide 24
BUN 12
Creatinine 0.6 L
Glucose 92
Calcium 9.0
Total Bilirubin 1.6 H
AST 253 H
ALT 204 H
Alkaline Phosphatase 529 H
Vital Signs:
Vital Signs
Temp Pulse Resp BP Pulse Ox
98.7 F 90 16 133/64 95
06/26/24 07:00 06/26/24 07:29 06/26/24 07:00 06/26/24 07:29 06/26/24 07:00
I&O
06/25/24 06/26/24 06/27/24
06:59 06:59 06:59
Intake Total 1040 / 1040 1080 / 1080
Output Total 1375 / 1375
Balance 1040 / 1040 -295 / -295
Review of Systems
-
History Source: Patient
All other systems: Not reviewed unless documented
Data Reviewed
-
Diagnostic Radiology: Report Reviewed by me
CT Scan: Report Reviewed by me
Labs: Labs Reviewed by me
--- NOTE | 2024-06-26 12:11 | W.DS.TRANS ---
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
-
Discharge Instructions:
Discharge Diagnosis/Procedures Small intraventricular hemorrhage along the
right lateral ventricle
Ecchymosis of right face/periorbital with
conjunctival hemorrhage from fall
choledocholithiasis
gallbladder wall thickening
Diet Low Fat,Low Cholesterol
Activity As tolerated
Blood Work cmp within 5-7 days with pcp/GI; Monitor Sodium
(134 today) and LFTs (Today - Total Bili 1.6,
AST 253, ALT 204, ALP 529) All were trending
down except mild bump in ALP
Others Tests Obtain repeat CT scan of the head in
approximately 3 to 4 weeks. Follow-up in the
Neurosurgery office thereafter.
Follow up with MRI/GI to continue monitoring
pancreatic cysts Follow-up MRI in 4-6 months
recommended
Instructions:
Stand-Alone Forms:
Changes to Home Medications: Yes
Discharge Medications:
DC Medications w/original date entered in [employer]
metoprolol succinate 25 mg tablet,extended release 24 hr 12.5 mg PO HS Blood pressure 10/09/19
tamsulosin 0.4 mg capsule 0.4 mg PO HS Urinary issue 09/07/21
apixaban 2.5 mg tablet (Eliquis) 2.5 mg PO HS Blood Clot Prevention/Tx 06/21/24
docusate sodium 100 mg capsule 100 mg PO HS Constipation 06/21/24
therapeutic multivitamin 1 tab PO DAILY Supplement 06/21/24
acetaminophen 500 mg tablet (Tylenol Extra Strength) 1,000 mg (2 x 500 mg) PO Q8HPRN PRN mild pain #180 tabs 06/25/24
oxycodone 5 mg tablet 5 mg PO Q4HPRN PRN severe pain #12 tabs 06/25/24
Home Medication Changes
acetaminophen 500 mg tablet (Tylenol Extra Strength) 1,000 mg (2 x 500 mg) PO Q8HPRN PRN mild pain #180 tabs 06/25/24
oxycodone 5 mg tablet 5 mg PO Q4HPRN PRN severe pain #12 tabs 06/25/24
Pending Results: No
--- NOTE | 2024-06-26 12:28 | W.DS.TRANS ---
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
-
Discharge Instructions:
Discharge Diagnosis/Procedures Small intraventricular hemorrhage along the
right lateral ventricle
Ecchymosis of right face/periorbital with
conjunctival hemorrhage from fall
choledocholithiasis
gallbladder wall thickening
Diet Low Fat,Low Cholesterol
Activity As tolerated
Blood Work cmp within 5-7 days with pcp/GI; Monitor Sodium
(134 today) and LFTs (Today - Total Bili 1.6,
AST 253, ALT 204, ALP 529) All were trending
down except mild bump in ALP
Others Tests Obtain repeat CT scan of the head in
approximately 3 to 4 weeks. Follow-up in the
Neurosurgery office thereafter.
Follow up with MRI/GI to continue monitoring
pancreatic cysts Follow-up MRI in 4-6 months
recommended
Instructions:
Stand-Alone Forms:
Changes to Home Medications: Yes
Discharge Medications:
DC Medications w/original date entered in [employer]
metoprolol succinate 25 mg tablet,extended release 24 hr 12.5 mg PO HS Blood pressure 10/09/19
tamsulosin 0.4 mg capsule 0.4 mg PO HS Urinary issue 09/07/21
apixaban 2.5 mg tablet (Eliquis) 2.5 mg PO HS Blood Clot Prevention/Tx 06/21/24
docusate sodium 100 mg capsule 100 mg PO HS Constipation 06/21/24
therapeutic multivitamin 1 tab PO DAILY Supplement 06/21/24
acetaminophen 500 mg tablet (Tylenol Extra Strength) 1,000 mg (2 x 500 mg) PO Q8HPRN PRN mild pain #180 tabs 06/25/24
oxycodone 5 mg tablet 5 mg PO Q4HPRN PRN severe pain #12 tabs 06/25/24
losartan 25 mg tablet 25 mg PO DAILY #30 tabs 06/26/24
Home Medication Changes
acetaminophen 500 mg tablet (Tylenol Extra Strength) 1,000 mg (2 x 500 mg) PO Q8HPRN PRN mild pain #180 tabs 06/25/24
oxycodone 5 mg tablet 5 mg PO Q4HPRN PRN severe pain #12 tabs 06/25/24
losartan 25 mg tablet 25 mg PO DAILY #30 tabs 06/26/24
Pending Results: No
[2024-06-26 12:57] VITALS: BP 151/85
--- NOTE | 2024-06-26 13:19 | CM ---
entered order for discharge.
Spoke with pt Latoya will drive him home.IMM reviewed Pt states he wants to be dc today.
Offered Vn he declined he will set up out pt cardiac rehab .
PLAN Home no needs i
--- NOTE | 2024-07-02 14:33 | PN.CDI ---
CDI
- -
CDI:
Physician Documentation Request
Admit Date: 06/24/24 16:18
Dear Doctor Andreina,
Patient admitted after a fall.
ER Physician Documentation: 'He missed the bench and fell on his right side. He states he grazed the right temporal area...Imaging shows a 5 mm focus along the dependent of the right lateral ventricle consistent with a small volume intraventricular
hemorrhage.'
06/22 Neurology PN: 'He had a noncontrast head CT that, that demonstrated right occipital intraventricular hemorrhage, likely traumatic in nature.'
Please clarify the following regarding the documented intraventricular hemorrhage:
Traumatic
Nontraumatic
Unable to determine
Use of terms such as suspected, likely, concern for, or probable (associated with a specific diagnosis that is being evaluated, monitored, or treated as if it exists) are acceptable and can be coded in the inpatient setting, when documented at the
time of discharge.
Thank you,
Olive Torres RN, BSN
CDI Specialist
Available via [place] text
Please use your independent medical judgment in providing your response.
--- NOTE | 2024-07-02 14:42 | PN.CDI ---
CDI
- -
CDI:
Physician Documentation Request
Admit Date: 06/24/24 16:18
Dear Doctor Andreina,
Patient admitted for intraventricular hemorrhage.
ER Physician Documentation: 'here after a mechanical fall yesterday. +Head strike on Eliquis...There is facial ecchymosis and a R subconjunctival hemorrhage noted.'
H&P: 'Small intraventricular hemorrhage along the right lateral ventricle...Hold Eliquis...Neurosurgery consulted and recommended stay for overnight observation and repeat CT head in the morning and discharge and resume Eliquis if stable
tomorrow...Ecchymosis of right face/periorbital with conjunctival hemorrhage from fall'
Please clarify the relationship between these conditions:
Yes, hemorrhage is related to/associated with/exacerbated to Eliquis.
No, hemorrhage is not related to/associated with/exacerbated by Eliquis
Unable to determine
Use of terms such as suspected, likely, concern for, or probable (associated with a specific diagnosis that is being evaluated, monitored, or treated as if it exists) are acceptable and can be coded in the inpatient setting, when documented at the
time of discharge.
Thank you,
Olive Torres RN, BSN
CDI Specialist
Available via [place] text
Please use your independent medical judgment in providing your response.
== END 2024-06-26 13:12 | disposition home or self-care (01) | DRG 417 ==
LOC: 3 WEST ACU 16:18
PROVIDERS: Internal Medicine Gastroenterology; Nurse Practitioner Adult Health; Physician Assistant; Radiology Diagnostic Radiology; Surgery; ADMITTING PHYSICIAN Hospitalist; ATTENDING PHYSICIAN Internal Medicine; CONSULT PHYSICIAN Surgery; EMERGENCY PHYSICIAN Emergency Medicine; FAMILY PHYSICIAN Internal Medicine; OTHER PHYSICIAN Neurological Surgery; OTHER PHYSICIAN Surgery
PROC: BF131ZZ Fluoroscopy of Gallbladder and Bile Ducts using Low Osmolar Contrast (ICD-10-PCS; 2024-06-23)
PROC: 0FC98ZZ Extirpation of Matter from Common Bile Duct, Via Natural or Artificial Opening Endoscopic (ICD-10-PCS; 2024-06-23)
PROC: 0FT44ZZ Resection of Gallbladder, Percutaneous Endoscopic Approach (ICD-10-PCS; 2024-06-24)
DX: K80.62 Calculus of gallbladder and bile duct with acute cholecystitis without obstruction (principal); S06.340A Traumatic hemorrhage of right cerebrum without loss of consciousness, initial encounter; D68.2 Hereditary deficiency of other clotting factors; M48.56XA Collapsed vertebra, not elsewhere classified, lumbar region, initial encounter for fracture; M33.20 Polymyositis, organ involvement unspecified; E87.1 Hypo-osmolality and hyponatremia; D68.32 Hemorrhagic disorder due to extrinsic circulating anticoagulants; H11.31 Conjunctival hemorrhage, right eye; I10 Essential (primary) hypertension; M31.5 Giant cell arteritis with polymyalgia rheumatica; I48.0 Paroxysmal atrial fibrillation; D53.9 Nutritional anemia, unspecified; M10.9 Gout, unspecified; N40.0 Benign prostatic hyperplasia without lower urinary tract symptoms; I27.20 Pulmonary hypertension, unspecified; R74.01 Elevation of levels of liver transaminase levels; I44.0 Atrioventricular block, first degree; S40.011A Contusion of right shoulder, initial encounter; W06.XXXA Fall from bed, initial encounter; Y92.003 Bedroom of unspecified non-institutional (private) residence as the place of occurrence of the external cause; Y93.89 Activity, other specified; Z96.652 Presence of left artificial knee joint; Z79.01 Long term (current) use of anticoagulants; Z95.2 Presence of prosthetic heart valve; Z85.46 Personal history of malignant neoplasm of prostate; Z85.810 Personal history of malignant neoplasm of tongue; Z87.891 Personal history of nicotine dependence; Z87.442 Personal history of urinary calculi; Z86.14 Personal history of Methicillin resistant Staphylococcus aureus infection; Z92.3 Personal history of irradiation; Z80.8 Family history of malignant neoplasm of other organs or systems
CPT/HCPCS: 88304; 70450; 70486; 73030; 74183; 74330; 76000; 76700; 80048; 80053; 82248; 85025; 85027; 85610; 85730; 86850; 86900; 86901; 87070; 88341; 88342; 97116; 97163; 97530; 97535; 99285; A9575; C1769

== ENCOUNTER 2024-07-05 11:53 | Outpatient (RCR) | payer MEDICARE, BC, SELFPAY | END 2024-07-05 23:59 | disposition home or self-care (01) | LOC: RST 11:53 | PROVIDERS: ATTENDING PHYSICIAN Internal Medicine; FAMILY PHYSICIAN Family Medicine | DX: C02.1 Malignant neoplasm of border of tongue (principal); R13.12 Dysphagia, oropharyngeal phase; R47.1 Dysarthria and anarthria; R47.01 Aphasia | CPT/HCPCS: 92507; 92526 ==

== ENCOUNTER → 2024-07-12 12:41 | Outpatient (REF) | payer MEDICARE, BC, SELFPAY | LOC: HWRAD 12:41 | PROVIDERS: ATTENDING PHYSICIAN Nurse Practitioner Family; FAMILY PHYSICIAN Internal Medicine | DX: I61.5 Nontraumatic intracerebral hemorrhage, intraventricular (principal) | CPT/HCPCS: 70450 ==

== ENCOUNTER 2024-08-02 12:06 | Outpatient (RCR) | payer MEDICARE, BC, SELFPAY | END 2024-08-02 23:59 | disposition home or self-care (01) | LOC: RST 12:06 | PROVIDERS: ATTENDING PHYSICIAN Internal Medicine; FAMILY PHYSICIAN Family Medicine | DX: C02.1 Malignant neoplasm of border of tongue (principal); R13.12 Dysphagia, oropharyngeal phase; R47.1 Dysarthria and anarthria; R47.01 Aphasia | CPT/HCPCS: 92507; 92526 ==

== ENCOUNTER 2024-09-01 14:23 | Outpatient (RCR) | payer MEDICARE, BC, SELFPAY | END 2024-09-02 05:57 | disposition home or self-care (01) | LOC: RST 14:23 | PROVIDERS: ATTENDING PHYSICIAN Internal Medicine; FAMILY PHYSICIAN Family Medicine | DX: C02.1 Malignant neoplasm of border of tongue (principal); R13.12 Dysphagia, oropharyngeal phase; R47.1 Dysarthria and anarthria; R47.01 Aphasia | CPT/HCPCS: 92507; 92526 ==

== ENCOUNTER 2024-12-07 10:03 | Day surgery (SDC) | payer MEDICARE, BC, SELFPAY ==
--- NOTE | 2024-12-07 12:20 | ITS.CL.CARDI ---
Mammography Technician - Cardioversion
Cardioversion
Procedure Report:
Procedure: BERNIE-guided electrical cardioversion
Pre-operative diagnosis: Persistent atrial fibrillation
Post-operative diagnosis: Persistent atrial fibrillation status post DC cardioversion to sinus rhythm
Anesthesia: MAC
Attending Physician: Keron Srinivasan MD
Procedure Description: The patient was brought to the electrophysiology laboratory in the fasting state. Informed consent was obtained from the patient prior to the start of the procedure. Adherence to anticoagulation was confirmed. Electrodes were
placed on the patient and connected to an external defibrillator. Monitoring of blood pressure, ECG tracings, and pulse oximetry was initiated. The pads were applied to the patient in the anterior and posterior positions. The patient was sedated by
the anesthesiologist. A BERNIE (reported separately) was performed prior to the cardioversion. No left atrial or left atrial appendage thrombus was seen. After the BERNIE probe was removed, a 200 joule biphasic synchronized shock was delivered to the
patient under MAC anesthesia. Sinus rhythm was successfully restored. The patient recovered uneventfully from MAC anesthesia. There were no immediate post-procedure complications. The patient left the lab in good condition. The attending physician
was present throughout the entire procedure.
Impression: Successful BERNIE-guided direct current cardioversion with pentecostalism of sinus rhythm after one 200 joule biphasic synchronized shock.
== END 2024-12-07 12:20 | disposition home or self-care (01) ==
LOC: CATH 10:03
PROVIDERS: ATTENDING PHYSICIAN Internal Medicine Cardiovascular Disease; FAMILY PHYSICIAN Internal Medicine
DX: I48.19 Other persistent atrial fibrillation (principal); I08.3 Combined rheumatic disorders of mitral, aortic and tricuspid valves; I70.0 Atherosclerosis of aorta; I10 Essential (primary) hypertension; Z79.01 Long term (current) use of anticoagulants; Z79.899 Other long term (current) drug therapy; I44.4 Left anterior fascicular block
CPT/HCPCS: 93312; 93320; 93325; 92960; 93005